=== PATIENT | female | born 1945 | race African-American/Black ===

== ENCOUNTER 2016-12-22 05:50 | Inpatient (IN) | payer MEDICARE, MEDICAID ==
[~2016-12-22] VITALS: Ht 157.5 cm; Wt 61.2 kg
[~2016-12-22 05:50] MED LIST: ASPI-1035 PO; CLOP75TA33 PO; ESOM40CA PO; FLUT1DIS5 IH; HYDR-523 PO; HYDR25TA PO; LEVO100T PO; LIOR10 PO; LOSA50TA20 PO; METO50TA5 PO; POTA-79 PO; fluticasone; prevastatin PO; theophylline PO
[2016-12-22] MEDS ORDERED: SODIUM CHLORIDE 0.9% 1,000 ML IV SCH ×2 (06:40→09:02)
[2016-12-22] MEDS ORDERED: GELATIN SPONGE,ABSORBABLE SZ 100 ONE (06:56)
[2016-12-22] MEDS ORDERED: THROMBIN (BOVINE) 5000 UNITS/VIAL TOP ONE (06:56)
[2016-12-22] MEDS ORDERED: PAPAVERINE HCL 30 MG/ML 2ML IV ONE (06:56)
[2016-12-22] MEDS ORDERED: HEPARIN SODIUM 1,000 UNIT/1ML VIAL IV ONE (06:57)
[2016-12-22] MEDS ORDERED: LIDOCAINE HCL 1% 20ML VIAL (Pyxis) INJ ONE (06:57)
[2016-12-22] MEDS ORDERED: BUPIVACAINE HCL/PF 0.5% (5MG/ML) 10ML ONE (06:57)
[2016-12-22] MEDS ORDERED: BACITRACIN ZINC 15GM TUBE TOP ONE (06:58)
[2016-12-22] MEDS ORDERED: BACITRACIN 50,000 UNITS/VIAL ONE (06:59)
[2016-12-22] MEDS ORDERED: NORMAL SALINE 0.9% 10 ML SYR ONE (07:01)
[2016-12-22] MEDS ORDERED: ONDANSETRON HCL 4MG/2ML VIAL IV PRN ×2 (07:30→09:15)
[2016-12-22] MEDS ORDERED: PRAV40TA58 PO (08:50)
[2016-12-22] MEDS: HYDROMORPHONE HCL/PF 2MG/ML CPJ IV PRN ×5 (10:06→10:56)
[2016-12-22 11:30] VITALS: BP 127/84
[2016-12-22] MEDS: MORPHINE SULFATE 4 MG/ML CPJ (NOT FOR IM USE) IV PRN ×2 (13:39→21:40)
[2016-12-22 16:00] VITALS: BP 135/80
[2016-12-22] MEDS: ACETAMINOPHEN 325MG TABLET PO PRN (18:01)
[2016-12-22 20:00] VITALS: BP 104/67
[2016-12-22 21:00] LABS: HEMATOCRIT 33.4 % (36.0-48.0); HEMOGLOBIN 11.1 g/dL (12.0-16.0); MEAN CORPUSCULAR HEMOGLOBIN 31.8 pg (28.0-32.0); MEAN CORPUSCULAR HGB CONC 33.3 g/dL (31.0-37.0); MEAN CORPUSCULAR VOLUME 95.6 fL (81.0-99.0); PLATELET 229 x1000/uL (130-400); RED CELL DISTRIBUTION WIDTH 13.8 % (11.6-14.6); WHITE BLOOD COUNT 15.4 x1000/uL (4.5-11.0)
[2016-12-22 21:01] LABS: CHLORIDE 105 mEq/L (98-107); INDEX HEMOLYSI 1 (1-3); INDEX ICTERIC 1 (1-4); INDEX LIPEMIC 1 (1-3)
[2016-12-22 21:10] LABS: ALANINE AMINOTRANSFERASE 19 IU/L (13-61); ALBUMIN 2.8 g/dL (3.4-5.0); ANION GAP 15; BILIRUBIN DIRECT 0.2 mg/dL (0.0-0.2); CALCIUM 8.9 mg/dL (8.5-10.1); CARBON DIOXIDE 21 mEq/L (21-32); UREA NITROGEN BLOOD 18 mg/dL (7-21); eGFR > 60 mL/min (>60)
[2016-12-22] MEDS: METOPROLOL TARTRATE 50MG TABLET PO SCH (21:27)
[2016-12-22] MEDS: ATORVASTATIN CALCIUM 10MG TABLET PO SCH (21:27)
[2016-12-22] MEDS ORDERED: VANCOMYCIN 1 G PREMIX 200 ML IV NR (23:00)
[2016-12-22] MEDS ORDERED: PIPERACILLIN/TAZOBACTAM 3.375GM/50ML PREMIX IV ONE (23:45)
[2016-12-22] MEDS ORDERED: VANCOMYCIN 500 MG in DEXT 5% WATER 100 ML IV SCH (23:45)
[2016-12-23] VITALS: BP 115/65
[2016-12-23] MEDS ORDERED: PIPERACILLIN/TAZ 3.375G PREMIX 50 ML IV SCH
[2016-12-23 06:42] LABS: HEMATOCRIT. 32.8 % (36.0-48.0); MEAN CORPUSCULAR HEMOGLOBIN 32.1 pg (28.0-32.0); MEAN CORPUSCULAR HGB CONC 33.6 g/dL (31.0-37.0); MEAN CORPUSCULAR VOLUME 95.6 fL (81.0-99.0); PLATELET 210 x1000/uL (130-400); RED BLOOD CELL COUNT 3.42 mill/uL (4.2-5.4); RED CELL DISTRIBUTION WIDTH 13.5 % (11.6-14.6); WHITE BLOOD COUNT 13.2 x1000/uL (4.5-11.0)
[2016-12-23 06:53] LABS: DIFFERENTIAL COMMENT 1
[2016-12-23 07:18] LABS: CHLORIDE 103 mEq/L (98-107); INDEX HEMOLYSI 1 (1-3); INDEX ICTERIC 1 (1-4); INDEX LIPEMIC 1 (1-3)
[2016-12-23 07:24] LABS: ANION GAP 13; CALCIUM 8.7 mg/dL (8.5-10.1); CARBON DIOXIDE 24 mEq/L (21-32); UREA NITROGEN BLOOD 14 mg/dL (7-21); eGFR > 60 mL/min (>60)
[2016-12-23] MEDS: LEVOTHYROXINE SODIUM 100MCG TABLET PO SCH (07:47)
[2016-12-23] MEDS: HYDROCODONE/ACETAMINOPHEN 5/325MG TABLET PO PRN ×2 (07:49→14:22)
[2016-12-23 08:00] VITALS: BP 106/75
[2016-12-23] MEDS ORDERED: PIPERACILLIN/TAZOBACTAM 3.375GM/50ML PREMIX IV SCH (08:15)
[2016-12-23] MEDS: LOSARTAN POTASSIUM 50 MG TABLET PO SCH (09:00)
[2016-12-23] MEDS: HYDROCHLOROTHIAZIDE 25MG TABLET PO SCH (09:00)
[2016-12-23] MEDS ORDERED: MEDICATION NOT ON FORMULARY EA (Pravastatin Sodium 40 MG) PO SCH (09:00)
[2016-12-23] MEDS: METOPROLOL TARTRATE 50MG TABLET PO SCH ×2 (09:00→21:00)
[2016-12-23] MEDS: CLOPIDOGREL 75MG TABLET PO SCH (09:32)
[2016-12-23] MEDS: ASPIRIN 81MG EC TABLET PO SCH (09:33)
[2016-12-23] MEDS: PIPERACILLIN/TAZ 3.375G PREMIX 50 ML IV SCH ×2 (10:40→17:45)
[2016-12-23] MEDS ORDERED: VANCOMYCIN 500 MG PREMIX 100 ML IV SCH (11:00)
[2016-12-23] MEDS ORDERED: VANCOMYCIN 1 G PREMIX 200 ML IV SCH (11:00)
[2016-12-23 12:00] VITALS: BP 116/64
[2016-12-23] MEDS ORDERED: POTASSIUM CHLORIDE 20MEQ TABLET SR PO NR (15:00)
[2016-12-23 16:00] VITALS: BP 107/50
[2016-12-23] MEDS: SODIUM CHL 0.45% + KCL 20MEQ/L 1,000 ML IV SCH (16:33)
[2016-12-23] MEDS: MORPHINE SULFATE 4 MG/ML CPJ (NOT FOR IM USE) IV PRN (16:34)
[2016-12-23] MEDS: VANCOMYCIN 750 MG PREMIX 150 ML IV SCH (18:55)
[2016-12-23 19:03] LABS: CLARITY URINE CLEAR (CLEAR); COLOR URINE YELLOW (YELLOW); GLUCOSE URINE NEGATIVE (NEGATIVE); KETONES URINE NEGATIVE (NEGATIVE); LEUKOCYTE ESTERASE URINE NEGATIVE (NEGATIVE); NITRITE URINE NEGATIVE (NEGATIVE); OCCULT BLOOD URINE NEGATIVE (NEGATIVE); PH URINE 5.5 (4.5-8.0); PROTEIN URINE NEGATIVE (NEGATIVE); SPECIFIC GRAVITY URINE 1.017 (1.005-1.030)
[2016-12-23 20:00] VITALS: BP 87/47
[2016-12-23] MEDS: ATORVASTATIN CALCIUM 10MG TABLET PO SCH (21:31)
[2016-12-23 22:29] LABS: PLATELET ESTIMATE NORMAL
[2016-12-24] VITALS: BP 127/64
[2016-12-24] MEDS: SODIUM CHL 0.45% + KCL 20MEQ/L 1,000 ML IV SCH ×3 (01:59→21:57)
[2016-12-24] MEDS: PIPERACILLIN/TAZ 3.375G PREMIX 50 ML IV SCH ×4 (02:04→17:29)
[2016-12-24] MEDS: MORPHINE SULFATE 4 MG/ML CPJ (NOT FOR IM USE) IV PRN ×2 (02:07→20:52)
[2016-12-24 04:00] VITALS: BP 127/86
[2016-12-24] MEDS: LEVOTHYROXINE SODIUM 100MCG TABLET PO SCH (06:40)
[2016-12-24 08:00] VITALS: BP 95/58
[2016-12-24] MEDS: CLOPIDOGREL 75MG TABLET PO SCH (08:37)
[2016-12-24] MEDS: ASPIRIN 81MG EC TABLET PO SCH (08:37)
[2016-12-24] MEDS: HYDROCHLOROTHIAZIDE 25MG TABLET PO SCH (08:39)
[2016-12-24] MEDS: LOSARTAN POTASSIUM 50 MG TABLET PO SCH (08:39)
[2016-12-24] MEDS: METOPROLOL TARTRATE 50MG TABLET PO SCH ×2 (08:40→20:52)
[2016-12-24] MEDS: VANCOMYCIN 750 MG PREMIX 150 ML IV SCH (11:09)
[2016-12-24 12:00] VITALS: BP 103/62
[2016-12-24] MEDS ORDERED: MAGNESIUM HYDROXIDE 400MG/5ML 30ML UDC PO SCH (13:15)
[2016-12-24] MEDS: MELOXICAM 7.5MG TABLET PO SCH (13:37)
[2016-12-24 16:00] VITALS: BP 113/73
[2016-12-24 20:00] VITALS: BP 113/67
[2016-12-24] MEDS: ATORVASTATIN CALCIUM 10MG TABLET PO SCH (20:52)
[2016-12-24] MEDS: ACETAMINOPHEN 325MG TABLET PO PRN (20:53)
[2016-12-24] MEDS ORDERED: ZOLPIDEM TARTRATE 5MG TABLET PO SCH (21:00)
[2016-12-25] VITALS (7 sets, daily range): BP systolic 85–117; BP diastolic 50–61
[2016-12-25] MEDS: PIPERACILLIN/TAZ 3.375G PREMIX 50 ML IV SCH ×4 (00:47→20:47)
[2016-12-25] MEDS: MORPHINE SULFATE 4 MG/ML CPJ (NOT FOR IM USE) IV PRN (05:25)
[2016-12-25 05:31] LABS: ANION GAP 15; CALCIUM 8.8 mg/dL (8.5-10.1); CARBON DIOXIDE 23 mEq/L (21-32); CHLORIDE 103 mEq/L (98-107); INDEX HEMOLYSI 1 (1-3); INDEX ICTERIC 1 (1-4); INDEX LIPEMIC 1 (1-3); UREA NITROGEN BLOOD 14 mg/dL (7-21); VANCOMYCIN TROUGH 8.9 ug/mL (5.0-10.0); eGFR > 60 mL/min (>60)
[2016-12-25] MEDS: LEVOTHYROXINE SODIUM 100MCG TABLET PO SCH (06:13)
[2016-12-25] MEDS: VANCOMYCIN 750 MG PREMIX 150 ML IV SCH (06:13)
[2016-12-25 06:53] LABS: BASOPHILS % 0.4 % (0.0-2.0); EOSINOPHILS % 0.5 % (0.0-5.0); HEMATOCRIT. 32.5 % (36.0-48.0); HEMOGLOBIN. 10.8 g/dL (12.0-16.0); LYMPHOCYTES % 11.7 % (20.0-50.0); MEAN CORPUSCULAR HEMOGLOBIN 32.4 pg (28.0-32.0); MEAN CORPUSCULAR HGB CONC 33.2 g/dL (31.0-37.0); MEAN CORPUSCULAR VOLUME 97.8 fL (81.0-99.0); MEAN PLATELET VOLUME 8.2 fl (7.4-10.4); MONOCYTES % 14.6 % (2.0-8.0); NEUTROPHILS % 72.8 % (40.0-76.0); PLATELET 213 x1000/uL (130-400); RED BLOOD CELL COUNT 3.32 mill/uL (4.2-5.4); RED CELL DISTRIBUTION WIDTH 13.4 % (11.6-14.6); WHITE BLOOD COUNT 13.4 x1000/uL (4.5-11.0)
[2016-12-25] MEDS: HYDROCHLOROTHIAZIDE 25MG TABLET PO SCH (09:00)
[2016-12-25] MEDS: LOSARTAN POTASSIUM 50 MG TABLET PO SCH (09:00)
[2016-12-25] MEDS: METOPROLOL TARTRATE 50MG TABLET PO SCH ×2 (09:00→20:15)
[2016-12-25] MEDS: ASPIRIN 81MG EC TABLET PO SCH (09:48)
[2016-12-25] MEDS: MELOXICAM 7.5MG TABLET PO SCH (09:48)
[2016-12-25] MEDS: CLOPIDOGREL 75MG TABLET PO SCH (09:48)
[2016-12-25] MEDS: HYDROCODONE/ACETAMINOPHEN 5/325MG TABLET PO PRN (09:51)
[2016-12-25] MEDS: SODIUM CHL 0.45% + KCL 20MEQ/L 1,000 ML IV SCH (17:53)
[2016-12-25] MEDS ORDERED: VANCOMYCIN 750 MG PREMIX 150 ML IV SCH (18:00)
[2016-12-25] MEDS: ATORVASTATIN CALCIUM 10MG TABLET PO SCH (20:46)
== END 2016-12-25 22:10 | disposition home health service (06) | DRG 253 ==
LOC: OR 05:50 → 6EST 05:51 → EDSTATUS 07:30
PROVIDERS: ADMIT Surgery Vascular Surgery; ATTEND Surgery Vascular Surgery
PROC: 041L0KL Bypass Left Femoral Artery to Popliteal Artery with Nonautologous Tissue Substitute, Open Approach (ICD-10-PCS; principal; 2016-12-22 07:30)
DX: E11.51 Type 2 diabetes mellitus with diabetic peripheral angiopathy without gangrene (principal); J98.11 Atelectasis; E44.1 Mild protein-calorie malnutrition; I74.9 Embolism and thrombosis of unspecified artery; D64.9 Anemia, unspecified; D72.829 Elevated white blood cell count, unspecified; E78.5 Hyperlipidemia, unspecified; E87.6 Hypokalemia; I12.9 Hypertensive chronic kidney disease with stage 1 through stage 4 chronic kidney disease, or unspecified chronic kidney disease; I25.10 Atherosclerotic heart disease of native coronary artery without angina pectoris; E11.65 Type 2 diabetes mellitus with hyperglycemia; J44.9 Chronic obstructive pulmonary disease, unspecified; K57.90 Diverticulosis of intestine, part unspecified, without perforation or abscess without bleeding; M16.12 Unilateral primary osteoarthritis, left hip; M48.02 Spinal stenosis, cervical region; N18.3 Chronic kidney disease, stage 3 (moderate); Z86.010 Personal history of colon polyps; Z86.718 Personal history of other venous thrombosis and embolism; Z79.82 Long term (current) use of aspirin; Z79.899 Other long term (current) drug therapy
CPT/HCPCS: 36415; 80048; 80051; 80076; 80202; 81003; 82962; 83036; 85025; 85027; 87040; 87086; 97162; 97166; A4216; C1884; C1893; J1170; J1644; J2270; J2440; J2543; J3370; J3480; J3490; J7030

== ENCOUNTER 2017-02-15 07:42 | Day surgery (SDC) | payer MEDICARE, MEDICAID ==
[~2017-02-15] VITALS: Ht 157.5 cm; Wt 60.8 kg
[~2017-02-15 07:42] MED LIST changes: +BACL-141 PO; -LIOR10 PO; +PRAV40TA58 PO; -prevastatin PO
[2017-02-15] MEDS ORDERED: MIDAZOLAM HCL 2 MG/2 ML VIAL ONE (11:33)
[2017-02-15] MEDS ORDERED: LIDOCAINE HCL 1% 20ML VIAL (Pyxis) INJ ONE (11:34)
[2017-02-15] MEDS ORDERED: IODIXANOL 320MG/ML 100 ML BOTTLE IV ONE (11:34)
[2017-02-15] MEDS ORDERED: FENTANYL CITRATE/PF 50MCG/ML 2ML VIAL ONE (11:34)
[2017-02-15] MEDS ORDERED: HYDROMORPHONE HCL/PF 2MG/ML (OR) ONE (11:47)
== END 2017-02-15 18:00 | disposition home or self-care (01) ==
LOC: CCL 07:42
PROVIDERS: ATTEND Specialist
DX: I70.212 Atherosclerosis of native arteries of extremities with intermittent claudication, left leg (principal)
CPT/HCPCS: 36246; 75710; C1725; C1760; C1769; C1893; J1170; J1644; J2250; J3010; J3490; Q9967

== ENCOUNTER → 2017-11-08 | Outpatient (CLI) | payer MEDICARE, MEDICAID ==
[~2017-11-08] MED LIST changes: -ASPI-1035 PO; +ASPI-1159 PO; +METO-539 PO; -METO50TA5 PO
== END | disposition home or self-care (01) ==
LOC: MRI 11:49
PROVIDERS: ATTEND Neurological Surgery
DX: M48.061 Spinal stenosis, lumbar region without neurogenic claudication (principal); M48.07 Spinal stenosis, lumbosacral region; Z98.1 Arthrodesis status
CPT/HCPCS: 72141; 72148

== ENCOUNTER → 2020-04-28 | Outpatient (CLI) | payer MEDICARE, MEDICAID ==
[~2020-04-28] MED LIST changes: -ASPI-1159 PO; +ASPI-1497 PO; -LOSA50TA20 PO; +LOSA50TA41 PO
== END | disposition home or self-care (01) ==
LOC: MRI 11:35
PROVIDERS: ATTEND Neurological Surgery
DX: M47.816 Spondylosis without myelopathy or radiculopathy, lumbar region (principal); M48.061 Spinal stenosis, lumbar region without neurogenic claudication; M43.17 Spondylolisthesis, lumbosacral region; M51.26 Other intervertebral disc displacement, lumbar region; M43.22 Fusion of spine, cervical region; M48.02 Spinal stenosis, cervical region; M25.78 Osteophyte, vertebrae
CPT/HCPCS: 72141; 72148

== ENCOUNTER → 2020-07-12 | Outpatient (CLI) | payer MEDICARE, MEDICAID ==
[~2020-07-12] MED LIST changes: +TRAM50TA3 PO
== END | disposition home or self-care (01) ==
LOC: LAB 09:11
PROVIDERS: ATTEND Neurological Surgery
DX: Z01.812 Encounter for preprocedural laboratory examination (principal); Z20.828 Contact with and (suspected) exposure to other viral communicable diseases
CPT/HCPCS: 87635; C9803

== ENCOUNTER 2020-07-18 15:05 | Inpatient (IN) | payer MEDICARE, MEDICAID ==
[~2020-07-18] VITALS: Ht 157.5 cm; Wt 74.4 kg
[2020-07-18] MEDS ORDERED: IPRATROPIUM/ALBUTEROL 0.5-3(2.5)MG/3ML NEB HHN PRN (16:00)
[2020-07-18] MEDS ORDERED: MORPHINE SULFATE 2 MG/ML CPJ (NOT FOR IM USE) IV PRN (16:00)
[2020-07-18] MEDS ORDERED: HYDROMORPHONE HCL/PF 2MG/ML CPJ IV PRN (16:00)
[2020-07-18 16:06] VITALS: BP 155/78
[2020-07-18] MEDS ORDERED: LACTULOSE 20G/30ML UDC PO PRN (16:30)
[2020-07-18] MEDS: DEXT 5%/0.45% NACL 1000ML 1,000 ML IV SCH (16:41)
[2020-07-18] MEDS: OXYCODONE HCL/ACETAMINOPHEN 5/325MG TABLET PO PRN ×2 (16:42→21:27)
[2020-07-18] MEDS: DOCUSATE SODIUM 100MG CAPSULE PO SCH (16:42)
[2020-07-18 17:27] VITALS: BP 155/78
[2020-07-18] MEDS: ACETAMINOPHEN 325MG TABLET PO PRN (19:50)
[2020-07-18 20:00] VITALS: BP 109/70
[2020-07-18] MEDS ORDERED: PNEUMOCOCCAL 23-VAL P-SAC VAC 0.5 ML IM ONE (21:00)
[2020-07-18] MEDS: BISACODYL 5MG TABLET PO PRN (21:25)
[2020-07-18] MEDS: ATORVASTATIN CALCIUM 10MG TABLET PO SCH (21:26)
[2020-07-18] MEDS: POLYETHYLENE GLYCOL 3350 (17GM) 1 DOSE PACK PO SCH (21:30)
[2020-07-18] MEDS: DILTIAZEM HCL 30MG TABLET PO SCH (22:30)
[2020-07-18] MEDS: IPRATROPIUM/ALBUTEROL 0.5-3(2.5)MG/3ML NEB HHN SCH (22:33)
[2020-07-19] MEDS: IPRATROPIUM/ALBUTEROL 0.5-3(2.5)MG/3ML NEB HHN SCH ×4 (04:14→21:28)
[2020-07-19] MEDS: DILTIAZEM HCL 30MG TABLET PO SCH ×3 (06:14→23:28)
[2020-07-19] MEDS: LEVOTHYROXINE SODIUM 100MCG TABLET PO SCH (06:14)
[2020-07-19] MEDS: OXYCODONE HCL/ACETAMINOPHEN 5/325MG TABLET PO PRN ×3 (06:43→20:30)
[2020-07-19 06:49] LABS: HEMATOCRIT. 25.1 % (36.0-48.0); HEMOGLOBIN. 8.7 g/dL (12.0-16.0); MEAN CORPUSCULAR HEMOGLOBIN 35.9 pg (28.0-32.0); MEAN CORPUSCULAR VOLUME 103.7 fL (81.0-99.0); MEAN PLATELET VOLUME 7.4 fl (7.4-10.4); PLATELET 283 x1000/uL (130-400); RED BLOOD CELL COUNT 2.42 mill/uL (4.2-5.4)
[2020-07-19 07:17] LABS: CHLORIDE 102 mEq/L (98-107)
[2020-07-19 07:53] VITALS: BP 123/70
[2020-07-19] MEDS: DOCUSATE SODIUM 100MG CAPSULE PO SCH ×2 (08:06→16:27)
[2020-07-19] MEDS: BISACODYL 5MG TABLET PO PRN (08:07)
[2020-07-19] MEDS: NA PHOS,M-B/NA PHOS,DI-BA ENEMA 118ML PR PRN (09:55)
[2020-07-19] MEDS: CEFTRIAXONE 1,000 MG in DEXTROSE 5% WATER 50 ML IV SCH (11:37)
[2020-07-19] MEDS: ONDANSETRON HCL 4MG TABLET PO PRN (11:41)
[2020-07-19] MEDS: ACETAMINOPHEN 325MG TABLET PO PRN (13:09)
[2020-07-19 13:17] VITALS: BP_SYST 149
[2020-07-19] MEDS: DEXT 5%/0.45% NACL 1000ML 1,000 ML IV SCH (17:52)
[2020-07-19 20:00] VITALS: BP 107/49
[2020-07-19] MEDS ORDERED: VANCOMYCIN 1 G PREMIX 200 ML IV SCH (20:00)
[2020-07-19] MEDS: POLYETHYLENE GLYCOL 3350 (17GM) 1 DOSE PACK PO SCH (20:28)
[2020-07-19] MEDS: ATORVASTATIN CALCIUM 10MG TABLET PO SCH (20:28)
[2020-07-20] MEDS: IPRATROPIUM/ALBUTEROL 0.5-3(2.5)MG/3ML NEB HHN SCH ×5 (01:30→20:32)
[2020-07-20] MEDS: DILTIAZEM HCL 30MG TABLET PO SCH ×2 (05:51→21:05)
[2020-07-20 06:14] LABS: HEMATOCRIT. 26.9 % (36.0-48.0); HEMOGLOBIN. 8.8 g/dL (12.0-16.0); MEAN CORPUSCULAR HEMOGLOBIN 33.9 pg (28.0-32.0); MEAN CORPUSCULAR VOLUME 103.4 fL (81.0-99.0); MEAN PLATELET VOLUME 7.4 fl (7.4-10.4); PLATELET 309 x1000/uL (130-400); RED CELL DISTRIBUTION WIDTH 12.3 % (11.6-14.6)
[2020-07-20 06:30] LABS: CHLORIDE 99 mEq/L (98-107)
[2020-07-20 06:38] LABS: PHOSPHORUS 2.4 mg/dL (2.5-4.9); TOTAL IRON BINDING CAPACITY 217 ug/dL (250-450)
[2020-07-20 06:39] LABS: FOLIC ACID (FOLATE) SERUM 9.1 ng/mL (>5.38)
[2020-07-20] MEDS: LEVOTHYROXINE SODIUM 100MCG TABLET PO SCH (06:42)
[2020-07-20] MEDS: OXYCODONE HCL/ACETAMINOPHEN 5/325MG TABLET PO PRN ×3 (06:43→21:06)
[2020-07-20] MEDS: DEXT 5%/0.45% NACL 1000ML 1,000 ML IV SCH ×2 (06:51→16:27)
[2020-07-20 07:06] LABS: PLATELET ESTIMATE NORMAL
[2020-07-20 07:55] VITALS: BP 121/60
[2020-07-20] MEDS ORDERED: VANCOMYCIN 750 MG PREMIX 150 ML IV SCH (08:00)
[2020-07-20] MEDS: DOCUSATE SODIUM 100MG CAPSULE PO SCH ×2 (08:12→16:19)
[2020-07-20] MEDS ORDERED: SODIUM PHOS,M-BASIC-D-BASIC 20 MM in DEXT 5% WATER 243.3333 ML IV NR (09:00)
[2020-07-20 11:41] VITALS: BP 96/52
[2020-07-20] MEDS ORDERED: DIATR MEGLU/DIATRIZOATE SOLN 30ML PO SCH (12:15)
[2020-07-20 12:40] VITALS: BP 94/63
[2020-07-20] MEDS: CEFTRIAXONE 1,000 MG in DEXTROSE 5% WATER 50 ML IV SCH (12:41)
[2020-07-20] MEDS: VANCOMYCIN 1 G PREMIX 200 ML IV SCH (13:30)
[2020-07-20] MEDS ORDERED: DIATR MEGLU/DIATRIZOATE SOLN 30ML PO NR ×2 (14:15→16:00)
[2020-07-20 14:28] LABS: PLATELET ESTIMATE NORMAL
[2020-07-20 15:43] VITALS: BP 108/56
[2020-07-20] MEDS ORDERED: IOHEXOL-300 100 ML BOTTLE ONE (18:37)
[2020-07-20 20:00] VITALS: BP 131/66
[2020-07-20] MEDS: POLYETHYLENE GLYCOL 3350 (17GM) 1 DOSE PACK PO SCH (21:00)
[2020-07-20] MEDS: ATORVASTATIN CALCIUM 10MG TABLET PO SCH (21:04)
[2020-07-21] MEDS: DEXT 5%/0.45% NACL 1000ML 1,000 ML IV SCH ×3 (00:05→17:11)
[2020-07-21] MEDS: IPRATROPIUM/ALBUTEROL 0.5-3(2.5)MG/3ML NEB HHN SCH ×4 (01:40→21:32)
[2020-07-21] MEDS: VANCOMYCIN 1 G PREMIX 200 ML IV SCH (05:51)
[2020-07-21] MEDS: LEVOTHYROXINE SODIUM 100MCG TABLET PO SCH (06:04)
[2020-07-21] MEDS: OXYCODONE HCL/ACETAMINOPHEN 5/325MG TABLET PO PRN ×4 (06:04→22:46)
[2020-07-21 06:37] LABS: HEMATOCRIT. 22.8 % (36.0-48.0); HEMOGLOBIN. 7.7 g/dL (12.0-16.0); MEAN CORPUSCULAR HEMOGLOBIN 34.1 pg (28.0-32.0); MEAN CORPUSCULAR VOLUME 101.3 fL (81.0-99.0); MEAN PLATELET VOLUME 7.4 fl (7.4-10.4); PLATELET 344 x1000/uL (130-400); RED BLOOD CELL COUNT 2.25 mill/uL (4.2-5.4); RED CELL DISTRIBUTION WIDTH 12.3 % (11.6-14.6)
[2020-07-21 06:56] LABS: CHLORIDE 100 mEq/L (98-107)
[2020-07-21 07:05] LABS: CREATINE KINASE 149 IU/L (26-192)
[2020-07-21] MEDS: ONDANSETRON HCL 4MG TABLET PO PRN (07:13)
[2020-07-21 08:28] VITALS: BP 102/61
[2020-07-21] MEDS: DOCUSATE SODIUM 100MG CAPSULE PO SCH ×3 (08:54→17:11)
[2020-07-21] MEDS: POTASSIUM CHLORIDE 20MEQ TABLET SR PO SCH ×2 (08:55→17:11)
[2020-07-21] MEDS: DILTIAZEM HCL 30MG TABLET PO SCH ×2 (08:55→22:46)
[2020-07-21 10:31] LABS: PLATELET ESTIMATE NORMAL
[2020-07-21] MEDS: CEFTRIAXONE 1,000 MG in DEXTROSE 5% WATER 50 ML IV SCH (12:33)
[2020-07-21] MEDS ORDERED: LOPERAMIDE 2MG/15ML UDC PO NR (17:00)
[2020-07-21] MEDS: METRONIDAZOLE 500 MG PREMIX 100 ML IV SCH ×2 (17:11→23:52)
[2020-07-21 20:00] VITALS: BP 126/80
[2020-07-21] MEDS: POLYETHYLENE GLYCOL 3350 (17GM) 1 DOSE PACK PO SCH (21:00)
[2020-07-21] MEDS: ATORVASTATIN CALCIUM 10MG TABLET PO SCH (22:43)
[2020-07-21] MEDS: VANCOMYCIN HCL 1000 MG/20 ML ORAL PO SCH (23:53)
[2020-07-22] MEDS: DEXT 5%/0.45% NACL 1000ML 1,000 ML IV SCH ×3 (00:12→16:05)
[2020-07-22] MEDS: IPRATROPIUM/ALBUTEROL 0.5-3(2.5)MG/3ML NEB HHN SCH ×3 (02:07→19:43)
[2020-07-22] MEDS: LEVOTHYROXINE SODIUM 100MCG TABLET PO SCH (06:37)
[2020-07-22] MEDS: OXYCODONE HCL/ACETAMINOPHEN 5/325MG TABLET PO PRN ×4 (06:39→23:25)
[2020-07-22 07:24] LABS: CHLORIDE 105 mEq/L (98-107)
[2020-07-22 07:32] LABS: PHOSPHORUS 2.1 mg/dL (2.5-4.9)
[2020-07-22 08:00] LABS: BASOPHILS % 0.7 % (0.0-2.0); EOSINOPHILS % 0.4 % (0.0-5.0); HEMATOCRIT. 23.2 % (36.0-48.0); HEMOGLOBIN. 7.7 g/dL (12.0-16.0); LYMPHOCYTES % 7.8 % (20.0-50.0); MEAN CORPUSCULAR HEMOGLOBIN 34.1 pg (28.0-32.0); MEAN CORPUSCULAR VOLUME 102.7 fL (81.0-99.0); MONOCYTES % 6.6 % (2.0-8.0); NEUTROPHILS % 84.5 % (40.0-76.0); RED BLOOD CELL COUNT 2.26 mill/uL (4.2-5.4); RED CELL DISTRIBUTION WIDTH 12.8 % (11.6-14.6)
[2020-07-22 08:30] VITALS: BP 115/64
[2020-07-22] MEDS: DILTIAZEM HCL 30MG TABLET PO SCH ×2 (08:42→21:34)
[2020-07-22] MEDS: POTASSIUM CHLORIDE 20MEQ TABLET SR PO SCH (08:42)
[2020-07-22] MEDS: METRONIDAZOLE 500 MG PREMIX 100 ML IV SCH ×2 (08:43→16:15)
[2020-07-22] MEDS: VANCOMYCIN HCL 1000 MG/20 ML ORAL PO SCH ×4 (08:45→21:35)
[2020-07-22] MEDS: DOCUSATE SODIUM 100MG CAPSULE PO SCH ×2 (08:56→16:43)
[2020-07-22] MEDS ORDERED: SODIUM PHOS,M-BASIC-D-BASIC 20 MM in DEXT 5% WATER 243.3333 ML IV ONE (12:30)
[2020-07-22] MEDS: FERROUS SULFATE 325MG TABLET PO SCH ×2 (12:42→16:45)
[2020-07-22] MEDS ORDERED: MAGNESIUM 2 G PREMIX 50 ML IV ONE (16:30)
[2020-07-22 17:52] VITALS: BP 143/74
[2020-07-22 20:00] VITALS: BP 131/71
[2020-07-22] MEDS: POLYETHYLENE GLYCOL 3350 (17GM) 1 DOSE PACK PO SCH (20:45)
[2020-07-22] MEDS: ATORVASTATIN CALCIUM 10MG TABLET PO SCH (21:34)
[2020-07-23] MEDS: DEXT 5%/0.45% NACL 1000ML 1,000 ML IV SCH ×3 (00:05→16:05)
[2020-07-23] MEDS: METRONIDAZOLE 500 MG PREMIX 100 ML IV SCH ×4 (01:02→23:12)
[2020-07-23] MEDS: IPRATROPIUM/ALBUTEROL 0.5-3(2.5)MG/3ML NEB HHN SCH ×4 (02:14→21:37)
[2020-07-23] MEDS: LEVOTHYROXINE SODIUM 100MCG TABLET PO SCH (06:54)
[2020-07-23] MEDS: OXYCODONE HCL/ACETAMINOPHEN 5/325MG TABLET PO PRN ×2 (06:55→13:03)
[2020-07-23 07:05] LABS: HEMATOCRIT. 23.8 % (36.0-48.0); HEMOGLOBIN. 8.1 g/dL (12.0-16.0); MEAN CORPUSCULAR HEMOGLOBIN 34.5 pg (28.0-32.0); MEAN CORPUSCULAR VOLUME 101.9 fL (81.0-99.0); MEAN PLATELET VOLUME 7.2 fl (7.4-10.4); PLATELET 519 x1000/uL (130-400); RED BLOOD CELL COUNT 2.33 mill/uL (4.2-5.4); RED CELL DISTRIBUTION WIDTH 12.4 % (11.6-14.6)
[2020-07-23 07:24] LABS: CHLORIDE 104 mEq/L (98-107)
[2020-07-23 07:45] LABS: PHOSPHORUS 2.6 mg/dL (2.5-4.9)
[2020-07-23 08:00] VITALS: BP 153/78
[2020-07-23] MEDS: FERROUS SULFATE 325MG TABLET PO SCH ×3 (09:27→17:19)
[2020-07-23] MEDS: DOCUSATE SODIUM 100MG CAPSULE PO SCH ×2 (09:28→17:17)
[2020-07-23] MEDS: DILTIAZEM HCL 30MG TABLET PO SCH ×2 (09:28→21:14)
[2020-07-23] MEDS: VANCOMYCIN HCL 1000 MG/20 ML ORAL PO SCH ×4 (09:29→21:16)
[2020-07-23 10:58] LABS: NUCLEATED RED BLOOD CELLS 1 /100 WBC; PLATELET ESTIMATE INCREASED
[2020-07-23] MEDS: ONDANSETRON HCL 4MG TABLET PO PRN (17:25)
[2020-07-23 20:00] VITALS: BP 133/64
[2020-07-23] MEDS: POLYETHYLENE GLYCOL 3350 (17GM) 1 DOSE PACK PO SCH (21:13)
[2020-07-23] MEDS: ATORVASTATIN CALCIUM 10MG TABLET PO SCH (21:13)
[2020-07-23] MEDS: ACETAMINOPHEN 325MG TABLET PO PRN (21:53)
[2020-07-23 22:47] VITALS: BP 133/64
[2020-07-24] MEDS: DEXT 5%/0.45% NACL 1000ML 1,000 ML IV SCH ×3 (02:37→21:36)
[2020-07-24] MEDS: IPRATROPIUM/ALBUTEROL 0.5-3(2.5)MG/3ML NEB HHN SCH ×4 (02:43→21:16)
[2020-07-24] MEDS: LEVOTHYROXINE SODIUM 100MCG TABLET PO SCH (06:16)
[2020-07-24 06:42] LABS: HEMATOCRIT. 23.8 % (36.0-48.0); HEMOGLOBIN. 7.9 g/dL (12.0-16.0); MEAN CORPUSCULAR HEMOGLOBIN 33.8 pg (28.0-32.0); MEAN CORPUSCULAR VOLUME 101.7 fL (81.0-99.0); MEAN PLATELET VOLUME 6.9 fl (7.4-10.4); PLATELET 574 x1000/uL (130-400); RED BLOOD CELL COUNT 2.34 mill/uL (4.2-5.4); RED CELL DISTRIBUTION WIDTH 12.4 % (11.6-14.6)
[2020-07-24 07:21] LABS: CHLORIDE 103 mEq/L (98-107)
[2020-07-24 07:38] LABS: PHOSPHORUS 2.1 mg/dL (2.5-4.9)
[2020-07-24 08:00] VITALS: BP 125/74
[2020-07-24] MEDS: ONDANSETRON HCL 4MG TABLET PO PRN (08:09)
[2020-07-24] MEDS: FERROUS SULFATE 325MG TABLET PO SCH ×3 (08:38→17:51)
[2020-07-24] MEDS: DOCUSATE SODIUM 100MG CAPSULE PO SCH ×2 (08:39→17:51)
[2020-07-24] MEDS: DILTIAZEM HCL 30MG TABLET PO SCH ×2 (08:39→21:35)
[2020-07-24] MEDS: METRONIDAZOLE 500 MG PREMIX 100 ML IV SCH ×2 (08:41→16:01)
[2020-07-24] MEDS: OXYCODONE HCL/ACETAMINOPHEN 5/325MG TABLET PO PRN (08:45)
[2020-07-24] MEDS: VANCOMYCIN HCL 1000 MG/20 ML ORAL PO SCH ×4 (08:46→21:53)
[2020-07-24] MEDS ORDERED: POTASSIUM-SODIUM PHOSPHATE POWDER PACKET PO NR (10:00)
[2020-07-24] MEDS ORDERED: POTASSIUM CHLORIDE 20MEQ TABLET SR PO NR (10:00)
[2020-07-24 14:03] LABS: PLATELET ESTIMATE INCREASED
[2020-07-24] MEDS: MORPHINE SULFATE 2 MG/ML CPJ (NOT FOR IM USE) IV PRN (16:02)
[2020-07-24] MEDS: ACETAMINOPHEN 325MG TABLET PO PRN (16:24)
[2020-07-24 20:00] VITALS: BP 124/79
[2020-07-24] MEDS ORDERED: NA PHOS,M-B/NA PHOS,DI-BA ENEMA 118ML PR NR (20:00)
[2020-07-24] MEDS: ATORVASTATIN CALCIUM 10MG TABLET PO SCH (21:34)
[2020-07-24] MEDS: POLYETHYLENE GLYCOL 3350 (17GM) 1 DOSE PACK PO SCH (21:34)
[2020-07-25] MEDS: OXYCODONE HCL/ACETAMINOPHEN 5/325MG TABLET PO PRN ×2 (00:53→17:00)
[2020-07-25] MEDS: METRONIDAZOLE 500 MG PREMIX 100 ML IV SCH ×2 (00:55→08:30)
[2020-07-25] MEDS: IPRATROPIUM/ALBUTEROL 0.5-3(2.5)MG/3ML NEB HHN SCH ×4 (01:15→21:05)
[2020-07-25 04:09] LABS: 25-HYDROXY VITAMIN D3 22 ng/mL (.)
[2020-07-25] MEDS: LEVOTHYROXINE SODIUM 100MCG TABLET PO SCH (06:25)
[2020-07-25 07:10] LABS: HEMATOCRIT. 23.1 % (36.0-48.0); HEMOGLOBIN. 7.8 g/dL (12.0-16.0); MEAN CORPUSCULAR HEMOGLOBIN 34.2 pg (28.0-32.0); MEAN CORPUSCULAR VOLUME 101.4 fL (81.0-99.0); MEAN PLATELET VOLUME 6.8 fl (7.4-10.4); PLATELET 604 x1000/uL (130-400); RED BLOOD CELL COUNT 2.27 mill/uL (4.2-5.4); RED CELL DISTRIBUTION WIDTH 12.8 % (11.6-14.6)
[2020-07-25 08:00] VITALS: BP 134/68
[2020-07-25 08:16] LABS: CHLORIDE 104 mEq/L (98-107)
[2020-07-25] MEDS: FERROUS SULFATE 325MG TABLET PO SCH ×3 (08:29→16:56)
[2020-07-25 08:30] LABS: PHOSPHORUS 2.7 mg/dL (2.5-4.9)
[2020-07-25] MEDS: VANCOMYCIN HCL 1000 MG/20 ML ORAL PO SCH ×4 (08:30→21:54)
[2020-07-25] MEDS: DILTIAZEM HCL 30MG TABLET PO SCH ×2 (08:30→21:55)
[2020-07-25] MEDS: DOCUSATE SODIUM 100MG CAPSULE PO SCH ×2 (08:31→17:00)
[2020-07-25] MEDS: MORPHINE SULFATE 2 MG/ML CPJ (NOT FOR IM USE) IV PRN (08:32)
[2020-07-25] MEDS: DEXT 5%/0.45% NACL 1000ML 1,000 ML IV SCH ×2 (10:24→23:30)
[2020-07-25] MEDS: MAGNESIUM OXIDE 400MG TABLET PO SCH ×2 (12:32→21:54)
[2020-07-25] MEDS: LACTOBACILLUS GG CAPSULE PO SCH (12:32)
[2020-07-25] MEDS: ERGOCALCIFEROL 50000UNITS CAPSULE PO SCH (12:32)
[2020-07-25 14:44] LABS: PLATELET ESTIMATE INCREASED
[2020-07-25] MEDS: NA PHOS,M-B/NA PHOS,DI-BA ENEMA 118ML PR PRN (16:56)
[2020-07-25 20:00] VITALS: BP 143/66
[2020-07-25] MEDS: POLYETHYLENE GLYCOL 3350 (17GM) 1 DOSE PACK PO SCH (21:00)
[2020-07-25] MEDS: ATORVASTATIN CALCIUM 10MG TABLET PO SCH (21:54)
[2020-07-26] MEDS: IPRATROPIUM/ALBUTEROL 0.5-3(2.5)MG/3ML NEB HHN SCH ×4 (01:50→22:10)
[2020-07-26] MEDS: OXYCODONE HCL/ACETAMINOPHEN 5/325MG TABLET PO PRN ×4 (02:45→21:23)
[2020-07-26 05:45] LABS: HEMATOCRIT. 24.9 % (36.0-48.0); HEMOGLOBIN. 8.3 g/dL (12.0-16.0); MEAN CORPUSCULAR HEMOGLOBIN 34.1 pg (28.0-32.0); MEAN CORPUSCULAR VOLUME 102.3 fL (81.0-99.0); MEAN PLATELET VOLUME 6.6 fl (7.4-10.4); PLATELET 692 x1000/uL (130-400); RED BLOOD CELL COUNT 2.43 mill/uL (4.2-5.4); RED CELL DISTRIBUTION WIDTH 12.9 % (11.6-14.6)
[2020-07-26 06:10] LABS: CHLORIDE 102 mEq/L (98-107)
[2020-07-26] MEDS: LEVOTHYROXINE SODIUM 100MCG TABLET PO SCH (06:31)
[2020-07-26 06:32] LABS: PHOSPHORUS 3.3 mg/dL (2.5-4.9)
[2020-07-26 08:19] VITALS: BP 145/97
[2020-07-26] MEDS: MAGNESIUM OXIDE 400MG TABLET PO SCH ×2 (08:46→21:23)
[2020-07-26] MEDS: VANCOMYCIN HCL 1000 MG/20 ML ORAL PO SCH ×4 (08:46→21:23)
[2020-07-26] MEDS: DILTIAZEM HCL 30MG TABLET PO SCH (08:47)
[2020-07-26] MEDS: DOCUSATE SODIUM 100MG CAPSULE PO SCH ×2 (08:47→16:40)
[2020-07-26] MEDS: LACTOBACILLUS GG CAPSULE PO SCH (08:47)
[2020-07-26] MEDS: FERROUS SULFATE 325MG TABLET PO SCH ×3 (08:47→16:40)
[2020-07-26] MEDS ORDERED: MORPHINE SULFATE 2 MG/ML CPJ (NOT FOR IM USE) IV PRN (11:49)
[2020-07-26 14:05] LABS: NUCLEATED RED BLOOD CELLS 3 /100 WBC; PLATELET ESTIMATE INCREASED
[2020-07-26 15:12] VITALS: BP 142/77
[2020-07-26] MEDS: DILTIAZEM HCL 60MG TABLET PO SCH ×2 (15:14→21:22)
[2020-07-26 20:00] VITALS: BP 126/74
[2020-07-26] MEDS: POLYETHYLENE GLYCOL 3350 (17GM) 1 DOSE PACK PO SCH (21:00)
[2020-07-26] MEDS: ATORVASTATIN CALCIUM 10MG TABLET PO SCH (21:22)
[2020-07-27] MEDS: IPRATROPIUM/ALBUTEROL 0.5-3(2.5)MG/3ML NEB HHN SCH ×4 (01:21→21:15)
[2020-07-27] MEDS: LEVOTHYROXINE SODIUM 100MCG TABLET PO SCH (06:08)
[2020-07-27] MEDS: DILTIAZEM HCL 60MG TABLET PO SCH ×3 (06:08→22:40)
[2020-07-27] MEDS: OXYCODONE HCL/ACETAMINOPHEN 5/325MG TABLET PO PRN ×3 (07:16→22:45)
[2020-07-27 08:26] VITALS: BP 111/66
[2020-07-27] MEDS: LACTOBACILLUS GG CAPSULE PO SCH (09:08)
[2020-07-27] MEDS: FERROUS SULFATE 325MG TABLET PO SCH ×3 (09:08→17:15)
[2020-07-27] MEDS: DOCUSATE SODIUM 100MG CAPSULE PO SCH ×2 (09:08→17:15)
[2020-07-27] MEDS: VANCOMYCIN HCL 1000 MG/20 ML ORAL PO SCH ×4 (09:10→21:32)
[2020-07-27 20:00] VITALS: BP 132/68
[2020-07-27] MEDS: POLYETHYLENE GLYCOL 3350 (17GM) 1 DOSE PACK PO SCH (21:30)
[2020-07-27] MEDS: ATORVASTATIN CALCIUM 10MG TABLET PO SCH (21:31)
[2020-07-28] MEDS: IPRATROPIUM/ALBUTEROL 0.5-3(2.5)MG/3ML NEB HHN SCH ×4 (02:20→20:11)
[2020-07-28 06:53] LABS: CHLORIDE 104 mEq/L (98-107)
[2020-07-28] MEDS: LEVOTHYROXINE SODIUM 100MCG TABLET PO SCH (06:55)
[2020-07-28 06:56] LABS: EOSINOPHILS % 0.4 % (0.0-5.0); HEMOGLOBIN. 8.8 g/dL (12.0-16.0); LYMPHOCYTES % 14.6 % (20.0-50.0); MEAN CORPUSCULAR HEMOGLOBIN 33.7 pg (28.0-32.0); MEAN CORPUSCULAR VOLUME 103.9 fL (81.0-99.0); MEAN PLATELET VOLUME 6.7 fl (7.4-10.4); MONOCYTES % 8.5 % (2.0-8.0); NEUTROPHILS % 75.5 % (40.0-76.0); PLATELET 700 x1000/uL (130-400); RED CELL DISTRIBUTION WIDTH 13.3 % (11.6-14.6)
[2020-07-28] MEDS: DILTIAZEM HCL 60MG TABLET PO SCH ×3 (06:56→21:04)
[2020-07-28 08:00] VITALS: BP 124/63
[2020-07-28] MEDS: LACTOBACILLUS GG CAPSULE PO SCH (08:12)
[2020-07-28] MEDS: OXYCODONE HCL/ACETAMINOPHEN 5/325MG TABLET PO PRN ×3 (08:13→18:02)
[2020-07-28] MEDS: FERROUS SULFATE 325MG TABLET PO SCH ×3 (08:13→17:46)
[2020-07-28] MEDS: VANCOMYCIN HCL 1000 MG/20 ML ORAL PO SCH ×4 (08:14→21:06)
[2020-07-28] MEDS: DOCUSATE SODIUM 100MG CAPSULE PO SCH (08:18)
[2020-07-28] MEDS: DOCUSATE SODIUM 250MG CAPSULE PO SCH (17:00)
[2020-07-28 20:00] VITALS: BP 133/61
[2020-07-28] MEDS: POLYETHYLENE GLYCOL 3350 (17GM) 1 DOSE PACK PO SCH (21:00)
[2020-07-28] MEDS: ATORVASTATIN CALCIUM 10MG TABLET PO SCH (21:04)
[2020-07-29] MEDS: IPRATROPIUM/ALBUTEROL 0.5-3(2.5)MG/3ML NEB HHN SCH ×4 (01:21→20:33)
[2020-07-29] MEDS: OXYCODONE HCL/ACETAMINOPHEN 5/325MG TABLET PO PRN ×4 (02:05→18:29)
[2020-07-29] MEDS: LEVOTHYROXINE SODIUM 100MCG TABLET PO SCH (06:00)
[2020-07-29] MEDS: DILTIAZEM HCL 60MG TABLET PO SCH ×3 (06:00→21:52)
[2020-07-29 08:00] VITALS: BP 110/60
[2020-07-29] MEDS: LACTOBACILLUS GG CAPSULE PO SCH (09:24)
[2020-07-29] MEDS: DOCUSATE SODIUM 250MG CAPSULE PO SCH ×2 (09:24→17:44)
[2020-07-29] MEDS: FERROUS SULFATE 325MG TABLET PO SCH ×3 (09:24→17:44)
[2020-07-29] MEDS: VANCOMYCIN HCL 1000 MG/20 ML ORAL PO SCH ×4 (09:25→21:53)
[2020-07-29] MEDS: LACTULOSE 20G/30ML UDC PO SCH ×2 (17:00→17:44)
[2020-07-29 20:00] VITALS: BP 117/72
[2020-07-29] MEDS: POLYETHYLENE GLYCOL 3350 (17GM) 1 DOSE PACK PO SCH (21:00)
[2020-07-29] MEDS: ATORVASTATIN CALCIUM 10MG TABLET PO SCH (21:51)
[2020-07-30] MEDS: IPRATROPIUM/ALBUTEROL 0.5-3(2.5)MG/3ML NEB HHN SCH ×4 (01:47→20:40)
[2020-07-30] MEDS: OXYCODONE HCL/ACETAMINOPHEN 5/325MG TABLET PO PRN ×4 (02:25→18:59)
[2020-07-30] MEDS: DILTIAZEM HCL 60MG TABLET PO SCH ×3 (06:05→21:00)
[2020-07-30] MEDS: LEVOTHYROXINE SODIUM 100MCG TABLET PO SCH (06:05)
[2020-07-30 08:00] VITALS: BP 146/80
[2020-07-30] MEDS: LACTOBACILLUS GG CAPSULE PO SCH (08:50)
[2020-07-30] MEDS: FERROUS SULFATE 325MG TABLET PO SCH ×3 (08:50→17:33)
[2020-07-30] MEDS: DOCUSATE SODIUM 250MG CAPSULE PO SCH ×2 (08:50→17:28)
[2020-07-30] MEDS: VANCOMYCIN HCL 1000 MG/20 ML ORAL PO SCH ×4 (08:52→21:01)
[2020-07-30 09:02] LABS: BASOPHILS % 0.2 % (0.0-2.0); EOSINOPHILS % 0.5 % (0.0-5.0); HEMATOCRIT. 29.2 % (36.0-48.0); HEMOGLOBIN. 9.5 g/dL (12.0-16.0); LYMPHOCYTES % 19.1 % (20.0-50.0); MEAN CORPUSCULAR HEMOGLOBIN 34.1 pg (28.0-32.0); MEAN CORPUSCULAR VOLUME 104.3 fL (81.0-99.0); MEAN PLATELET VOLUME 6.1 fl (7.4-10.4); MONOCYTES % 5.6 % (2.0-8.0); NEUTROPHILS % 74.6 % (40.0-76.0); PLATELET 710 x1000/uL (130-400); RED CELL DISTRIBUTION WIDTH 13.7 % (11.6-14.6)
[2020-07-30 09:18] LABS: CHLORIDE 104 mEq/L (98-107)
[2020-07-30 09:27] LABS: PHOSPHORUS 3.3 mg/dL (2.5-4.9)
[2020-07-30 12:33] LABS: CLARITY URINE CLEAR (CLEAR); COLOR URINE YELLOW (YELLOW); KETONES URINE NEGATIVE (NEGATIVE); LEUKOCYTE ESTERASE URINE NEGATIVE (NEGATIVE); NITRITE URINE NEGATIVE (NEGATIVE); OCCULT BLOOD URINE NEGATIVE (NEGATIVE); PROTEIN URINE NEGATIVE (NEGATIVE); SPECIFIC GRAVITY URINE 1.013 (1.005-1.030); UROBILINOGEN URINE 0.2 E.U./dL (0.2-1.0)
[2020-07-30] MEDS ORDERED: DEXTROSE 50% WATER 50ML SYRINGE IV PRN (12:45)
[2020-07-30] MEDS: INSULIN LISPRO 100 UNITS/ML SUBCUT SCH ×3 (13:00→21:00)
[2020-07-30] MEDS: BLOOD SUGAR DIAGNOSTIC STRIP TEST SCH ×2 (17:28→21:01)
[2020-07-30 20:00] VITALS: BP 112/69
[2020-07-30] MEDS: POLYETHYLENE GLYCOL 3350 (17GM) 1 DOSE PACK PO SCH (20:57)
[2020-07-30] MEDS: ATORVASTATIN CALCIUM 10MG TABLET PO SCH (20:57)
[2020-07-31] MEDS: IPRATROPIUM/ALBUTEROL 0.5-3(2.5)MG/3ML NEB HHN SCH ×4 (01:30→21:23)
[2020-07-31] MEDS: LEVOTHYROXINE SODIUM 100MCG TABLET PO SCH (06:22)
[2020-07-31] MEDS: DILTIAZEM HCL 60MG TABLET PO SCH ×3 (06:23→21:50)
[2020-07-31] MEDS: BLOOD SUGAR DIAGNOSTIC STRIP TEST SCH ×4 (06:23→21:52)
[2020-07-31] MEDS: OXYCODONE HCL/ACETAMINOPHEN 5/325MG TABLET PO PRN ×3 (06:36→19:43)
[2020-07-31 08:00] VITALS: BP 137/84
[2020-07-31] MEDS: LACTOBACILLUS GG CAPSULE PO SCH (08:00)
[2020-07-31] MEDS: FERROUS SULFATE 325MG TABLET PO SCH ×3 (08:00→16:24)
[2020-07-31] MEDS: DOCUSATE SODIUM 250MG CAPSULE PO SCH ×2 (08:00→16:24)
[2020-07-31] MEDS: VANCOMYCIN HCL 1000 MG/20 ML ORAL PO SCH ×2 (08:05→12:13)
[2020-07-31] MEDS: INSULIN LISPRO 100 UNITS/ML SUBCUT SCH ×4 (09:00→21:00)
[2020-07-31 20:00] VITALS: BP 126/75
[2020-07-31] MEDS: ATORVASTATIN CALCIUM 10MG TABLET PO SCH (21:50)
[2020-07-31] MEDS: POLYETHYLENE GLYCOL 3350 (17GM) 1 DOSE PACK PO SCH (21:50)
[2020-08-01] MEDS: IPRATROPIUM/ALBUTEROL 0.5-3(2.5)MG/3ML NEB HHN SCH ×4 (02:42→22:14)
[2020-08-01] MEDS: BLOOD SUGAR DIAGNOSTIC STRIP TEST SCH ×4 (06:23→21:35)
[2020-08-01] MEDS: LEVOTHYROXINE SODIUM 100MCG TABLET PO SCH (06:25)
[2020-08-01] MEDS: DILTIAZEM HCL 60MG TABLET PO SCH ×3 (06:30→21:35)
[2020-08-01] MEDS: OXYCODONE HCL/ACETAMINOPHEN 5/325MG TABLET PO PRN ×3 (06:38→18:45)
[2020-08-01 06:48] LABS: BASOPHILS % 0.7 % (0.0-2.0); EOSINOPHILS % 0.9 % (0.0-5.0); HEMATOCRIT. 28.2 % (36.0-48.0); HEMOGLOBIN. 9.5 g/dL (12.0-16.0); LYMPHOCYTES % 24.7 % (20.0-50.0); MEAN CORPUSCULAR HEMOGLOBIN 35.5 pg (28.0-32.0); MEAN CORPUSCULAR VOLUME 105.5 fL (81.0-99.0); MONOCYTES % 9.8 % (2.0-8.0); NEUTROPHILS % 63.9 % (40.0-76.0); PLATELET 589 x1000/uL (130-400); RED BLOOD CELL COUNT 2.67 mill/uL (4.2-5.4); RED CELL DISTRIBUTION WIDTH 13.9 % (11.6-14.6)
[2020-08-01 06:52] LABS: CHLORIDE 109 mEq/L (98-107)
[2020-08-01 07:03] LABS: PHOSPHORUS 3.6 mg/dL (2.5-4.9)
[2020-08-01 08:30] VITALS: BP 131/72
[2020-08-01] MEDS: FERROUS SULFATE 325MG TABLET PO SCH ×3 (08:35→17:03)
[2020-08-01] MEDS: DOCUSATE SODIUM 250MG CAPSULE PO SCH ×2 (08:35→17:03)
[2020-08-01] MEDS: INSULIN LISPRO 100 UNITS/ML SUBCUT SCH ×4 (08:36→21:00)
[2020-08-01] MEDS: ERGOCALCIFEROL 50000UNITS CAPSULE PO SCH (08:36)
[2020-08-01] MEDS: LACTOBACILLUS GG CAPSULE PO SCH (08:36)
[2020-08-01] MEDS: ACETAMINOPHEN 325MG TABLET PO PRN (09:22)
[2020-08-01 13:43] VITALS: BP 126/75
[2020-08-01 20:30] VITALS: BP 111/57
[2020-08-01] MEDS: POLYETHYLENE GLYCOL 3350 (17GM) 1 DOSE PACK PO SCH (21:00)
[2020-08-01] MEDS: ATORVASTATIN CALCIUM 10MG TABLET PO SCH (21:34)
[2020-08-02] MEDS: OXYCODONE HCL/ACETAMINOPHEN 5/325MG TABLET PO PRN ×4 (01:48→21:00)
[2020-08-02] MEDS: IPRATROPIUM/ALBUTEROL 0.5-3(2.5)MG/3ML NEB HHN SCH ×4 (02:37→21:52)
[2020-08-02] MEDS: DILTIAZEM HCL 60MG TABLET PO SCH ×3 (06:04→20:58)
[2020-08-02] MEDS: BLOOD SUGAR DIAGNOSTIC STRIP TEST SCH ×4 (06:04→21:00)
[2020-08-02] MEDS: INSULIN LISPRO 100 UNITS/ML SUBCUT SCH ×4 (06:04→21:00)
[2020-08-02] MEDS: LEVOTHYROXINE SODIUM 100MCG TABLET PO SCH (06:56)
[2020-08-02 08:00] VITALS: BP 147/79
[2020-08-02] MEDS: DOCUSATE SODIUM 250MG CAPSULE PO SCH ×2 (08:25→16:12)
[2020-08-02] MEDS: FERROUS SULFATE 325MG TABLET PO SCH ×3 (08:26→16:12)
[2020-08-02] MEDS: LACTOBACILLUS GG CAPSULE PO SCH (08:26)
[2020-08-02 20:00] VITALS: BP 147/84
[2020-08-02] MEDS: ATORVASTATIN CALCIUM 10MG TABLET PO SCH (20:58)
[2020-08-02] MEDS: POLYETHYLENE GLYCOL 3350 (17GM) 1 DOSE PACK PO SCH (21:00)
[2020-08-03] MEDS: IPRATROPIUM/ALBUTEROL 0.5-3(2.5)MG/3ML NEB HHN SCH ×2 (01:43→09:41)
[2020-08-03] MEDS: LEVOTHYROXINE SODIUM 100MCG TABLET PO SCH (06:24)
[2020-08-03] MEDS: DILTIAZEM HCL 60MG TABLET PO SCH (06:24)
[2020-08-03] MEDS: BLOOD SUGAR DIAGNOSTIC STRIP TEST SCH (06:24)
[2020-08-03] MEDS: INSULIN LISPRO 100 UNITS/ML SUBCUT SCH (07:04)
[2020-08-03 08:00] VITALS: BP 116/60
[2020-08-03] MEDS: DOCUSATE SODIUM 250MG CAPSULE PO SCH (08:03)
[2020-08-03] MEDS: LACTOBACILLUS GG CAPSULE PO SCH (08:04)
[2020-08-03] MEDS: FERROUS SULFATE 325MG TABLET PO SCH (08:04)
[2020-08-03] MEDS: OXYCODONE HCL/ACETAMINOPHEN 5/325MG TABLET PO PRN (08:04)
[2020-08-03 12:24] VITALS: BP 148/91
== END 2020-08-03 12:56 | disposition home health service (06) | DRG 551 ==
PROVIDERS: ADMIT Physical Medicine & Rehabilitation Spinal Cord Injury Medicine; ATTEND Internal Medicine Nephrology
DX: M48.061 Spinal stenosis, lumbar region without neurogenic claudication (principal); A41.9 Sepsis, unspecified organism; J98.11 Atelectasis; E46 Unspecified protein-calorie malnutrition; G82.20 Paraplegia, unspecified; K59.00 Constipation, unspecified; M47.26 Other spondylosis with radiculopathy, lumbar region; M51.9 Unspecified thoracic, thoracolumbar and lumbosacral intervertebral disc disorder; N18.9 Chronic kidney disease, unspecified; N28.1 Cyst of kidney, acquired; J44.9 Chronic obstructive pulmonary disease, unspecified; E03.9 Hypothyroidism, unspecified; E11.22 Type 2 diabetes mellitus with diabetic chronic kidney disease; E11.51 Type 2 diabetes mellitus with diabetic peripheral angiopathy without gangrene; E11.65 Type 2 diabetes mellitus with hyperglycemia; E78.5 Hyperlipidemia, unspecified; E87.6 Hypokalemia; G89.4 Chronic pain syndrome; I12.9 Hypertensive chronic kidney disease with stage 1 through stage 4 chronic kidney disease, or unspecified chronic kidney disease; R13.10 Dysphagia, unspecified; D50.9 Iron deficiency anemia, unspecified; D63.8 Anemia in other chronic diseases classified elsewhere; R26.9 Unspecified abnormalities of gait and mobility; R00.0 Tachycardia, unspecified; R19.7 Diarrhea, unspecified; R10.9 Unspecified abdominal pain; E83.39 Other disorders of phosphorus metabolism; K59.9 Functional intestinal disorder, unspecified; D75.89 Other specified diseases of blood and blood-forming organs; E83.42 Hypomagnesemia; Z87.891 Personal history of nicotine dependence; Z98.1 Arthrodesis status; Z79.899 Other long term (current) drug therapy; Z68.30 Body mass index [BMI] 30.0-30.9, adult; Z71.6 Tobacco abuse counseling
CPT/HCPCS: 36415; 71045; 72148; 73721; 74177; 80048; 80053; 80202; 81003; 82306; 82550; 82607; 82728; 82746; 82962; 83036; 83540; 83550; 83735; 84100; 84134; 84443; 85025; 85651; 90732; 92610; 93970; 94640; 97110; 97116; 97162; 97166; 97530; 97535; J0696; J2270; J3370; J3475; J3490; J7060; Q0162; Q9963; Q9967

== ENCOUNTER 2020-11-06 21:35 | Emergency (ER) | payer MEDICARE, MEDICAID ==
[~2020-11-06] VITALS: Ht 162.6 cm; Wt 76.0 kg
[2020-11-06] MEDS ORDERED: KETOROLAC 60MG/2ML VIAL IM ONE (23:30)
[2020-11-07 13:08] VITALS: BP 125/76
== END 2020-11-07 13:08 | disposition home or self-care (01) ==
LOC: ER 22:04
DX: M79.605 Pain in left leg (principal); E78.00 Pure hypercholesterolemia, unspecified; I10 Essential (primary) hypertension; E11.9 Type 2 diabetes mellitus without complications; Z79.899 Other long term (current) drug therapy; Z79.82 Long term (current) use of aspirin
CPT/HCPCS: 72131; 73620; 93005; 99285

== ENCOUNTER → 2020-11-10 | Outpatient (CLI) | payer MEDICARE, MEDICAID ==
[~2020-11-10] MED LIST changes: +BENZ-16 PO
== END | disposition home or self-care (01) ==
LOC: LAB 06:23
PROVIDERS: ATTEND Specialist
DX: Z20.828 Contact with and (suspected) exposure to other viral communicable diseases (principal)
CPT/HCPCS: 87426

== ENCOUNTER 2020-11-15 22:16 | Inpatient (IN) | payer OTHER, MEDICAID ==
[~2020-11-15] VITALS: Ht 152.4 cm; Wt 69.9 kg
[2020-11-15 22:16] VITALS: BP 113/68
[~2020-11-15 22:16] MED LIST changes: -BACL-141 PO; -HYDR-523 PO; -TRAM50TA3 PO; -theophylline PO
[2020-11-15 22:20] VITALS: BP 113/68
[2020-11-16] MEDS ORDERED: ACETAMINOPHEN 325MG TABLET PO PRN (02:00)
[2020-11-16] MEDS ORDERED: ONDANSETRON HCL 4MG/2ML INJ IV PRN (02:00)
[2020-11-16] MEDS ORDERED: ATROPINE SULFATE 1MG/10ML SYR IV PRN (02:00)
[2020-11-16] MEDS: LEVOTHYROXINE SODIUM 100MCG TABLET PO SCH (06:04)
[2020-11-16] MEDS: MORPHINE SULFATE 2 MG/ML CPJ (NOT FOR IM USE) IV PRN ×2 (06:15→09:56)
[2020-11-16 08:00] VITALS: BP 113/63
[2020-11-16] MEDS: BENZONATATE 100MG CAPSULE PO SCH ×3 (09:00→18:07)
[2020-11-16] MEDS: POTASSIUM CHLORIDE 20MEQ TABLET SR PO SCH (09:52)
[2020-11-16] MEDS: ASPIRIN 81MG TABLET PO SCH (09:52)
[2020-11-16] MEDS: METOPROLOL TARTRATE 50MG TABLET PO SCH ×2 (09:53→21:00)
[2020-11-16] MEDS: LOSARTAN POTASSIUM 50 MG TABLET PO SCH (09:53)
[2020-11-16] MEDS: CLOPIDOGREL 75MG TABLET PO SCH (09:54)
[2020-11-16] MEDS: FAMOTIDINE 20MG/2ML VIAL IV SCH (09:54)
[2020-11-16 10:01] LABS: BASOPHILS % 0.6 % (0.0-2.0); EOSINOPHILS % 2.2 % (0.0-5.0); HEMATOCRIT. 34.1 % (36.0-48.0); HEMOGLOBIN. 11.3 g/dL (12.0-16.0); LYMPHOCYTES % 18.9 % (20.0-50.0); MEAN CORPUSCULAR HEMOGLOBIN 30.3 pg (28.0-32.0); MEAN CORPUSCULAR VOLUME 91.9 fL (81.0-99.0); MEAN PLATELET VOLUME 7.7 fl (7.4-10.4); MONOCYTES % 12.5 % (2.0-8.0); NEUTROPHILS % 65.8 % (40.0-76.0); PLATELET 318 x1000/uL (130-400); RED BLOOD CELL COUNT 3.71 mill/uL (4.2-5.4); RED CELL DISTRIBUTION WIDTH 17.3 % (11.6-14.6)
[2020-11-16 10:12] LABS: CHLORIDE 108 mEq/L (98-107)
[2020-11-16] MEDS: ENOXAPARIN 30MG/0.3ML SYR SUBCUT SCH (18:07)
[2020-11-16] MEDS: HYDROCODONE/ACETAMINOPHEN 5/325MG TABLET PO PRN (18:42)
[2020-11-16 20:00] VITALS: BP 109/47
[2020-11-16] MEDS: ATORVASTATIN CALCIUM 10MG TABLET PO SCH (21:57)
[2020-11-17] MEDS: HYDROCODONE/ACETAMINOPHEN 5/325MG TABLET PO PRN ×4 (04:39→23:37)
[2020-11-17] MEDS: LEVOTHYROXINE SODIUM 100MCG TABLET PO SCH (06:20)
[2020-11-17] MEDS: ACETAMINOPHEN 325MG TABLET PO PRN (06:20)
[2020-11-17 07:17] LABS: BASOPHILS % 0.6 % (0.0-2.0); EOSINOPHILS % 2.1 % (0.0-5.0); HEMATOCRIT. 31.8 % (36.0-48.0); HEMOGLOBIN. 10.7 g/dL (12.0-16.0); MEAN CORPUSCULAR HEMOGLOBIN 31.6 pg (28.0-32.0); MEAN CORPUSCULAR VOLUME 93.3 fL (81.0-99.0); MEAN PLATELET VOLUME 7.4 fl (7.4-10.4); MONOCYTES % 12.3 % (2.0-8.0); PLATELET 344 x1000/uL (130-400); RED BLOOD CELL COUNT 3.41 mill/uL (4.2-5.4); RED CELL DISTRIBUTION WIDTH 17.3 % (11.6-14.6)
[2020-11-17 07:22] LABS: CHLORIDE 109 mEq/L (98-107)
[2020-11-17 07:30] LABS: PHOSPHORUS 3.4 mg/dL (2.5-4.9)
[2020-11-17 07:31] LABS: TOTAL IRON BINDING CAPACITY 323 ug/dL (250-450)
[2020-11-17 08:00] VITALS: BP 123/74
[2020-11-17] MEDS: ASPIRIN 81MG TABLET PO SCH (08:32)
[2020-11-17] MEDS: LACTULOSE 20G/30ML UDC PO SCH ×2 (08:32→12:04)
[2020-11-17] MEDS: LOSARTAN POTASSIUM 50 MG TABLET PO SCH (08:33)
[2020-11-17] MEDS: BENZONATATE 100MG CAPSULE PO SCH ×3 (08:33→17:04)
[2020-11-17] MEDS: CLOPIDOGREL 75MG TABLET PO SCH (08:34)
[2020-11-17] MEDS: POTASSIUM CHLORIDE 20MEQ TABLET SR PO SCH (08:34)
[2020-11-17] MEDS: METOPROLOL TARTRATE 50MG TABLET PO SCH ×2 (08:34→21:23)
[2020-11-17] MEDS: FAMOTIDINE 20MG/2ML VIAL IV SCH (08:35)
[2020-11-17] MEDS: ENOXAPARIN 30MG/0.3ML SYR SUBCUT SCH (08:35)
[2020-11-17 09:09] LABS: FOLIC ACID (FOLATE) SERUM 7.7 ng/mL (>5.38)
[2020-11-17] MEDS ORDERED: LACTULOSE 20G/30ML UDC PO SCH (13:20)
[2020-11-17] MEDS: OXYCODONE HCL 5MG TABLET PO SCH (17:04)
[2020-11-17 20:00] VITALS: BP 103/62
[2020-11-17] MEDS: ATORVASTATIN CALCIUM 10MG TABLET PO SCH (21:05)
[2020-11-17] MEDS: POLYETHYLENE GLYCOL 3350 (17GM) 1 DOSE PACK PO SCH (21:05)
[2020-11-18 06:38] LABS: T4 FREE 1.08 ng/dL (0.76-1.46)
[2020-11-18] MEDS: LEVOTHYROXINE SODIUM 112MCG TABLET PO SCH (07:45)
[2020-11-18 08:00] VITALS: BP 122/72
[2020-11-18] MEDS: POTASSIUM CHLORIDE 20MEQ TABLET SR PO SCH (08:07)
[2020-11-18] MEDS: ENOXAPARIN 30MG/0.3ML SYR SUBCUT SCH (08:07)
[2020-11-18] MEDS: ASPIRIN 81MG TABLET PO SCH (08:07)
[2020-11-18] MEDS: LOSARTAN POTASSIUM 50 MG TABLET PO SCH (08:08)
[2020-11-18] MEDS: METOPROLOL TARTRATE 50MG TABLET PO SCH ×2 (08:08→21:00)
[2020-11-18] MEDS: CLOPIDOGREL 75MG TABLET PO SCH (08:08)
[2020-11-18] MEDS: BENZONATATE 100MG CAPSULE PO SCH ×3 (08:08→17:00)
[2020-11-18] MEDS: FAMOTIDINE 20MG/2ML VIAL IV SCH (08:08)
[2020-11-18] MEDS: HYDROCODONE/ACETAMINOPHEN 5/325MG TABLET PO PRN ×3 (08:08→22:53)
[2020-11-18] MEDS: OXYCODONE HCL 5MG TABLET PO SCH ×3 (08:09→17:00)
[2020-11-18 20:00] VITALS: BP 92/56
[2020-11-18] MEDS: POLYETHYLENE GLYCOL 3350 (17GM) 1 DOSE PACK PO SCH (21:00)
[2020-11-18] MEDS: ATORVASTATIN CALCIUM 10MG TABLET PO SCH (21:14)
[2020-11-19] MEDS: LEVOTHYROXINE SODIUM 112MCG TABLET PO SCH (06:48)
[2020-11-19] MEDS: HYDROCODONE/ACETAMINOPHEN 5/325MG TABLET PO PRN ×2 (06:49→21:05)
[2020-11-19 08:00] VITALS: BP 114/66
[2020-11-19] MEDS: ENOXAPARIN 30MG/0.3ML SYR SUBCUT SCH (09:46)
[2020-11-19] MEDS: FAMOTIDINE 20MG/2ML VIAL IV SCH (09:46)
[2020-11-19] MEDS: ASPIRIN 81MG TABLET PO SCH (09:46)
[2020-11-19] MEDS: OXYCODONE HCL 5MG TABLET PO SCH ×3 (09:47→16:25)
[2020-11-19] MEDS: CLOPIDOGREL 75MG TABLET PO SCH (09:47)
[2020-11-19] MEDS: POTASSIUM CHLORIDE 20MEQ TABLET SR PO SCH (09:47)
[2020-11-19] MEDS: METOPROLOL TARTRATE 50MG TABLET PO SCH ×2 (09:47→21:00)
[2020-11-19] MEDS: LOSARTAN POTASSIUM 50 MG TABLET PO SCH (09:47)
[2020-11-19] MEDS: BENZONATATE 100MG CAPSULE PO SCH ×3 (09:47→16:24)
[2020-11-19 20:00] VITALS: BP 99/49
[2020-11-19] MEDS: ATORVASTATIN CALCIUM 10MG TABLET PO SCH (21:04)
[2020-11-19] MEDS: POLYETHYLENE GLYCOL 3350 (17GM) 1 DOSE PACK PO SCH (21:05)
[2020-11-20] MEDS: HYDROCODONE/ACETAMINOPHEN 5/325MG TABLET PO PRN (03:39)
[2020-11-20] MEDS: LEVOTHYROXINE SODIUM 112MCG TABLET PO SCH (06:24)
[2020-11-20 08:00] VITALS: BP 115/70
[2020-11-20] MEDS: LOSARTAN POTASSIUM 50 MG TABLET PO SCH (09:00)
[2020-11-20] MEDS: FAMOTIDINE 20MG/2ML VIAL IV SCH (09:18)
[2020-11-20] MEDS: ASPIRIN 81MG TABLET PO SCH (09:18)
[2020-11-20] MEDS: ENOXAPARIN 30MG/0.3ML SYR SUBCUT SCH (09:18)
[2020-11-20] MEDS: BENZONATATE 100MG CAPSULE PO SCH ×3 (09:19→17:04)
[2020-11-20] MEDS: CLOPIDOGREL 75MG TABLET PO SCH (09:19)
[2020-11-20] MEDS: METOPROLOL TARTRATE 50MG TABLET PO SCH ×2 (09:19→21:00)
[2020-11-20] MEDS: OXYCODONE HCL 5MG TABLET PO SCH ×4 (09:19→21:20)
[2020-11-20] MEDS: POTASSIUM CHLORIDE 20MEQ TABLET SR PO SCH (09:19)
[2020-11-20 19:11] LABS: 25-HYDROXY VITAMIN D3 13 ng/mL (.)
[2020-11-20 20:00] VITALS: BP 96/50
[2020-11-20] MEDS: ATORVASTATIN CALCIUM 10MG TABLET PO SCH (21:19)
[2020-11-20] MEDS: POLYETHYLENE GLYCOL 3350 (17GM) 1 DOSE PACK PO SCH (21:19)
[2020-11-21] MEDS: HYDROCODONE/ACETAMINOPHEN 5/325MG TABLET PO PRN (01:32)
[2020-11-21] MEDS: LEVOTHYROXINE SODIUM 112MCG TABLET PO SCH (06:21)
[2020-11-21 07:00] LABS: BASOPHILS % 0.9 % (0.0-2.0); EOSINOPHILS % 2.9 % (0.0-5.0); HEMOGLOBIN. 10.8 g/dL (12.0-16.0); LYMPHOCYTES % 22.4 % (20.0-50.0); MEAN CORPUSCULAR HEMOGLOBIN 31.4 pg (28.0-32.0); MEAN CORPUSCULAR VOLUME 92.8 fL (81.0-99.0); MEAN PLATELET VOLUME 6.8 fl (7.4-10.4); MONOCYTES % 9.3 % (2.0-8.0); NEUTROPHILS % 64.5 % (40.0-76.0); PLATELET 474 x1000/uL (130-400); RED BLOOD CELL COUNT 3.45 mill/uL (4.2-5.4); RED CELL DISTRIBUTION WIDTH 17.2 % (11.6-14.6)
[2020-11-21 07:19] LABS: CHLORIDE 108 mEq/L (98-107)
[2020-11-21 08:00] VITALS: BP 110/87
[2020-11-21] MEDS: METOPROLOL TARTRATE 50MG TABLET PO SCH ×2 (09:00→21:00)
[2020-11-21] MEDS: LOSARTAN POTASSIUM 50 MG TABLET PO SCH (09:17)
[2020-11-21] MEDS: ASPIRIN 81MG TABLET PO SCH (09:17)
[2020-11-21] MEDS: OXYCODONE HCL 5MG TABLET PO SCH ×3 (09:17→17:40)
[2020-11-21] MEDS: CLOPIDOGREL 75MG TABLET PO SCH (09:17)
[2020-11-21] MEDS: BENZONATATE 100MG CAPSULE PO SCH ×3 (09:18→17:36)
[2020-11-21] MEDS: POTASSIUM CHLORIDE 20MEQ TABLET SR PO SCH (09:18)
[2020-11-21] MEDS: FAMOTIDINE 20MG/2ML VIAL IV SCH (09:18)
[2020-11-21] MEDS ORDERED: ERGOCALCIFEROL 50000UNITS CAPSULE PO SCH (10:00)
[2020-11-21] MEDS: ENOXAPARIN 30MG/0.3ML SYR SUBCUT SCH (11:03)
[2020-11-21 20:00] VITALS: BP 100/52
[2020-11-21] MEDS: ATORVASTATIN CALCIUM 10MG TABLET PO SCH (21:47)
[2020-11-21] MEDS: GABAPENTIN 100MG CAPSULE PO SCH (21:47)
[2020-11-21] MEDS: POLYETHYLENE GLYCOL 3350 (17GM) 1 DOSE PACK PO SCH (21:47)
[2020-11-22] MEDS: ACETAMINOPHEN 325MG TABLET PO PRN (00:47)
[2020-11-22] MEDS: GABAPENTIN 100MG CAPSULE PO SCH ×3 (05:46→21:48)
[2020-11-22] MEDS: LEVOTHYROXINE SODIUM 112MCG TABLET PO SCH (05:46)
[2020-11-22] MEDS: OXYCODONE HCL 5MG TABLET PO PRN ×3 (05:47→15:55)
[2020-11-22 07:30] VITALS: BP 106/60
[2020-11-22] MEDS: BENZONATATE 100MG CAPSULE PO SCH ×3 (08:10→16:42)
[2020-11-22] MEDS: CLOPIDOGREL 75MG TABLET PO SCH (08:10)
[2020-11-22] MEDS: FAMOTIDINE 20MG/2ML VIAL IV SCH (08:10)
[2020-11-22] MEDS: ASPIRIN 81MG TABLET PO SCH (08:10)
[2020-11-22] MEDS: POTASSIUM CHLORIDE 20MEQ TABLET SR PO SCH (08:10)
[2020-11-22] MEDS: ENOXAPARIN 30MG/0.3ML SYR SUBCUT SCH (08:11)
[2020-11-22] MEDS: METOPROLOL TARTRATE 50MG TABLET PO SCH ×2 (09:00→21:47)
[2020-11-22] MEDS: LOSARTAN POTASSIUM 50 MG TABLET PO SCH (09:00)
[2020-11-22 10:18] VITALS: BP 105/60
[2020-11-22 20:00] VITALS: BP 157/84
[2020-11-22] MEDS: POLYETHYLENE GLYCOL 3350 (17GM) 1 DOSE PACK PO SCH (21:47)
[2020-11-22] MEDS: ATORVASTATIN CALCIUM 10MG TABLET PO SCH (21:48)
[2020-11-23 03:13] VITALS: BP 128/70
[2020-11-23] MEDS: OXYCODONE HCL 5MG TABLET PO PRN ×4 (03:16→16:39)
[2020-11-23] MEDS: GABAPENTIN 100MG CAPSULE PO SCH ×3 (05:53→22:50)
[2020-11-23] MEDS: LEVOTHYROXINE SODIUM 112MCG TABLET PO SCH (05:54)
[2020-11-23 07:07] LABS: BASOPHILS % 0.7 % (0.0-2.0); HEMOGLOBIN. 10.7 g/dL (12.0-16.0); LYMPHOCYTES % 16.1 % (20.0-50.0); MEAN CORPUSCULAR HEMOGLOBIN 31.5 pg (28.0-32.0); MEAN CORPUSCULAR VOLUME 94.3 fL (81.0-99.0); MEAN PLATELET VOLUME 7.1 fl (7.4-10.4); NEUTROPHILS % 72.2 % (40.0-76.0); PLATELET 469 x1000/uL (130-400); RED BLOOD CELL COUNT 3.39 mill/uL (4.2-5.4); RED CELL DISTRIBUTION WIDTH 17.6 % (11.6-14.6)
[2020-11-23 07:24] LABS: CHLORIDE 106 mEq/L (98-107)
[2020-11-23 08:00] VITALS: BP 116/69
[2020-11-23] MEDS: LOSARTAN POTASSIUM 50 MG TABLET PO SCH (09:00)
[2020-11-23] MEDS: ENOXAPARIN 30MG/0.3ML SYR SUBCUT SCH (09:33)
[2020-11-23] MEDS: POTASSIUM CHLORIDE 20MEQ TABLET SR PO SCH (09:33)
[2020-11-23] MEDS: BENZONATATE 100MG CAPSULE PO SCH ×3 (09:33→16:39)
[2020-11-23] MEDS: METOPROLOL TARTRATE 50MG TABLET PO SCH ×2 (09:34→21:00)
[2020-11-23] MEDS: ASPIRIN 81MG TABLET PO SCH (09:34)
[2020-11-23] MEDS: FAMOTIDINE 20MG/2ML VIAL IV SCH (09:34)
[2020-11-23] MEDS: CLOPIDOGREL 75MG TABLET PO SCH (09:34)
[2020-11-23 20:00] VITALS: BP 92/57
[2020-11-23] MEDS: ACETAMINOPHEN 325MG TABLET PO PRN (22:49)
[2020-11-23] MEDS: POLYETHYLENE GLYCOL 3350 (17GM) 1 DOSE PACK PO SCH (22:49)
[2020-11-23] MEDS: AMOXICILLIN/POTASSIUM CLAVULANATE 875/125MG TAB PO SCH (22:49)
[2020-11-23] MEDS: SULFAMETHOXAZOLE/TRIMETHOPRIM 400/80MG TAB PO SCH (22:50)
[2020-11-23] MEDS: ATORVASTATIN CALCIUM 10MG TABLET PO SCH (22:50)
[2020-11-23] MEDS: NEOMY SULF/BACITRAC ZN/POLY OINT 28GM TOP SCH (22:57)
[2020-11-24] MEDS: GABAPENTIN 100MG CAPSULE PO SCH (06:55)
[2020-11-24] MEDS: LEVOTHYROXINE SODIUM 112MCG TABLET PO SCH (06:56)
[2020-11-24] MEDS: ACETAMINOPHEN 325MG TABLET PO PRN (06:56)
[2020-11-24 08:00] VITALS: BP 117/71
[2020-11-24] MEDS: ENOXAPARIN 30MG/0.3ML SYR SUBCUT SCH (08:56)
[2020-11-24] MEDS: BENZONATATE 100MG CAPSULE PO SCH (08:57)
[2020-11-24] MEDS: FAMOTIDINE 20MG/2ML VIAL IV SCH (08:57)
[2020-11-24] MEDS: CLOPIDOGREL 75MG TABLET PO SCH (08:57)
[2020-11-24] MEDS: LOSARTAN POTASSIUM 50 MG TABLET PO SCH (08:57)
[2020-11-24] MEDS: ASPIRIN 81MG TABLET PO SCH (08:57)
[2020-11-24] MEDS: AMOXICILLIN/POTASSIUM CLAVULANATE 875/125MG TAB PO SCH (08:57)
[2020-11-24] MEDS: OXYCODONE HCL 5MG TABLET PO PRN (08:57)
[2020-11-24] MEDS: METOPROLOL TARTRATE 50MG TABLET PO SCH (08:57)
[2020-11-24] MEDS: SULFAMETHOXAZOLE/TRIMETHOPRIM 400/80MG TAB PO SCH (08:57)
[2020-11-24] MEDS: POTASSIUM CHLORIDE 20MEQ TABLET SR PO SCH (08:58)
[2020-11-24] MEDS: NEOMY SULF/BACITRAC ZN/POLY OINT 28GM TOP SCH (08:59)
[2020-11-24 11:11] VITALS: BP 116/67
== END 2020-11-24 13:12 | disposition home health service (06) | DRG 300 ==
PROVIDERS: ADMIT Physical Medicine & Rehabilitation Spinal Cord Injury Medicine; ATTEND Specialist
DX: E11.51 Type 2 diabetes mellitus with diabetic peripheral angiopathy without gangrene (principal); E46 Unspecified protein-calorie malnutrition; I74.5 Embolism and thrombosis of iliac artery; I77.9 Disorder of arteries and arterioles, unspecified; R53.81 Other malaise; R26.9 Unspecified abnormalities of gait and mobility; G89.4 Chronic pain syndrome; I10 Essential (primary) hypertension; E78.5 Hyperlipidemia, unspecified; J44.9 Chronic obstructive pulmonary disease, unspecified; E03.9 Hypothyroidism, unspecified; F17.210 Nicotine dependence, cigarettes, uncomplicated; I25.10 Atherosclerotic heart disease of native coronary artery without angina pectoris; E55.9 Vitamin D deficiency, unspecified; I49.5 Sick sinus syndrome; K21.9 Gastro-esophageal reflux disease without esophagitis; K57.90 Diverticulosis of intestine, part unspecified, without perforation or abscess without bleeding; D64.9 Anemia, unspecified; I70.222 Atherosclerosis of native arteries of extremities with rest pain, left leg; Z79.02 Long term (current) use of antithrombotics/antiplatelets; Z79.82 Long term (current) use of aspirin; Z79.4 Long term (current) use of insulin; Z80.3 Family history of malignant neoplasm of breast; Z80.8 Family history of malignant neoplasm of other organs or systems; Z82.49 Family history of ischemic heart disease and other diseases of the circulatory system; Z83.3 Family history of diabetes mellitus; Z98.1 Arthrodesis status; Z56.0 Unemployment, unspecified; Z79.899 Other long term (current) drug therapy; Z71.6 Tobacco abuse counseling; Z68.30 Body mass index [BMI] 30.0-30.9, adult
CPT/HCPCS: 36415; 80048; 80053; 82306; 82607; 82728; 82746; 83540; 83550; 83735; 84100; 84134; 84439; 84443; 84481; 85025; 93970; 97110; 97116; 97162; 97166; 97530; 97535; J1650; J2270; J3490

== ENCOUNTER 2020-11-29 09:17 | Inpatient (IN) | payer OTHER, MEDICAID ==
[~2020-11-29] VITALS: Ht 162.6 cm; Wt 60.3 kg
[~2020-11-29 09:17] MED LIST changes: -HYDR25TA PO
[2020-11-29 10:13] LABS: HEMATOCRIT. 37.6 % (36.0-48.0); MEAN CORPUSCULAR HEMOGLOBIN 31.3 pg (28.0-32.0); MEAN CORPUSCULAR VOLUME 97.9 fL (81.0-99.0); RED BLOOD CELL COUNT 3.84 mill/uL (4.2-5.4); RED CELL DISTRIBUTION WIDTH 20.2 % (11.6-14.6)
[2020-11-29 10:21] LABS: CHLORIDE 115 mEq/L (98-107)
[2020-11-29 10:24] LABS: PROTHROMBIN TIME 10.2 sec (9.6-11.0)
[2020-11-29 11:08] LABS: PLATELET ESTIMATE NORMAL
[2020-11-29] MEDS ORDERED: VANCOMYCIN 1 G PREMIX 200 ML IV ONE (11:15)
[2020-11-29] MEDS ORDERED: PIPERACILLIN/TAZ 3.375G PREMIX 50 ML IV ONE (11:15)
[2020-11-29] MEDS ORDERED: SODIUM CHLORIDE 0.9% 1000ML BAG (SEPSIS BOLUS) IV ONE (11:30)
[2020-11-29] MEDS ORDERED: MORPHINE SULFATE 4 MG/ML CPJ (NOT FOR IM USE) IV ONE (13:15)
[2020-11-29] MEDS ORDERED: HYDROCODONE/ACETAMINOPHEN 5/325MG TABLET PO PRN (14:00)
[2020-11-29] MEDS ORDERED: MAGNESIUM/ALUMINUM HYDROXIDE/SIMETHICONE 30ML UDC PO PRN (14:00)
[2020-11-29] MEDS ORDERED: LOSARTAN POTASSIUM 50 MG TABLET PO SCH (14:00)
[2020-11-29] MEDS ORDERED: CLONIDINE 0.1MG TABLET PO PRN (14:00)
[2020-11-29] MEDS ORDERED: DOCUSATE SODIUM 100MG CAPSULE PO PRN (14:00)
[2020-11-29] MEDS ORDERED: GUAIFENESIN 200MG/10ML SUGAR FREE UDC PO PRN (14:00)
[2020-11-29] MEDS ORDERED: DEXTROSE 50% WATER 50ML SYRINGE IV PRN (14:15)
[2020-11-29 14:55] LABS: CLARITY URINE CLEAR (CLEAR); COLOR URINE YELLOW (YELLOW); KETONES URINE NEGATIVE (NEGATIVE); LEUKOCYTE ESTERASE URINE TRACE (NEGATIVE); NITRITE URINE NEGATIVE (NEGATIVE); OCCULT BLOOD URINE 1+ (NEGATIVE); PH URINE 5.5 (4.5-8.0); PROTEIN URINE NEGATIVE (NEGATIVE); SPECIFIC GRAVITY URINE 1.015 (1.005-1.030); UROBILINOGEN URINE 0.2 E.U./dL (0.2-1.0)
[2020-11-29] MEDS: LEVOTHYROXINE SODIUM 100MCG TABLET PO SCH (15:00)
[2020-11-29] MEDS ORDERED: NITROGLYCERIN OINT 1GM/INCH UDPKT TD SCH (15:00)
[2020-11-29] MEDS: CLOPIDOGREL 75MG TABLET PO SCH (15:09)
[2020-11-29] MEDS ORDERED: ENOXAPARIN 60MG/0.6ML SYR SUBCUT SCH (15:30)
[2020-11-29] MEDS ORDERED: ENOXAPARIN 40MG/0.4ML SYR SUBCUT SCH ×2 (16:30→17:00)
[2020-11-29] MEDS: METOPROLOL TARTRATE 50MG TABLET PO SCH (16:59)
[2020-11-29] MEDS: INSULIN LISPRO 100 UNITS/ML SUBCUT SCH ×2 (17:11→21:33)
[2020-11-29] MEDS: BLOOD SUGAR DIAGNOSTIC STRIP TEST SCH ×2 (17:11→21:17)
[2020-11-29] MEDS: HYDROMORPHONE HCL/PF 2MG/ML CPJ IV PRN (20:15)
[2020-11-30] MEDS ORDERED: METOPROLOL TARTRATE 5MG/5ML VIAL IV PRN (00:45)
[2020-11-30] MEDS: ACETAMINOPHEN 325MG TABLET PO PRN ×2 (01:15→11:48)
[2020-11-30 05:04] LABS: HEMATOCRIT. 33.9 % (36.0-48.0); HEMOGLOBIN. 11.3 g/dL (12.0-16.0); MEAN CORPUSCULAR HEMOGLOBIN 31.4 pg (28.0-32.0); MEAN CORPUSCULAR VOLUME 94.8 fL (81.0-99.0); MEAN PLATELET VOLUME 7.8 fl (7.4-10.4); PLATELET 361 x1000/uL (130-400); RED BLOOD CELL COUNT 3.58 mill/uL (4.2-5.4)
[2020-11-30 05:08] LABS: CHLORIDE 116 mEq/L (98-107)
[2020-11-30] MEDS: INSULIN LISPRO 100 UNITS/ML SUBCUT SCH ×4 (06:39→21:00)
[2020-11-30] MEDS: BLOOD SUGAR DIAGNOSTIC STRIP TEST SCH ×4 (06:39→21:00)
[2020-11-30] MEDS: LEVOTHYROXINE SODIUM 100MCG TABLET PO SCH (07:10)
[2020-11-30] MEDS ORDERED: POTASSIUM CHLORIDE 20MEQ TABLET SR PO NR (09:00)
[2020-11-30] MEDS ORDERED: VANCOMYCIN 1 G PREMIX 200 ML IV SCH (10:15)
[2020-11-30] MEDS: METOPROLOL TARTRATE 50MG TABLET PO SCH ×2 (11:46→17:00)
[2020-11-30] MEDS: CLOPIDOGREL 75MG TABLET PO SCH (11:46)
[2020-11-30] MEDS: ENOXAPARIN 40MG/0.4ML SYR SUBCUT SCH (11:48)
[2020-11-30 12:00] VITALS: BP 128/79
[2020-11-30] MEDS ORDERED: VANCOMYCIN 750 MG PREMIX 150 ML IV SCH (12:00)
[2020-11-30 14:31] LABS: PLATELET ESTIMATE NORMAL
[2020-11-30] MEDS: SODIUM CHLORIDE 0.45% 1,000 ML IV SCH ×2 (14:34→20:15)
[2020-11-30 16:00] VITALS: BP 89/59
[2020-11-30] MEDS ORDERED: DIATR MEGLU/DIATRIZOATE SOLN 30ML PO SCH (16:30)
[2020-11-30 17:45] VITALS: BP 89/59
[2020-11-30] MEDS: CEFEPIME 1,000 MG in DEXTROSE 5% WATER 50 ML IV SCH (18:44)
[2020-11-30 20:00] VITALS: BP 141/82
[2020-11-30] MEDS: HYDROMORPHONE HCL/PF 2MG/ML CPJ IV PRN (20:25)
[2020-11-30] MEDS: ONDANSETRON HCL 4MG/2ML INJ IV PRN (20:25)
[2020-11-30 23:59] VITALS: BP 139/82
[2020-12-01] MEDS: ONDANSETRON HCL 4MG/2ML INJ IV PRN ×2 (02:17→12:14)
[2020-12-01 04:00] VITALS: BP 112/71
[2020-12-01] MEDS: SODIUM CHLORIDE 0.45% 1,000 ML IV SCH ×2 (05:16→16:59)
[2020-12-01] MEDS: CEFEPIME 1,000 MG in DEXTROSE 5% WATER 50 ML IV SCH ×2 (05:16→18:22)
[2020-12-01] MEDS: LEVOTHYROXINE SODIUM 100MCG TABLET PO SCH (05:17)
[2020-12-01] MEDS: INSULIN LISPRO 100 UNITS/ML SUBCUT SCH ×4 (05:41→21:00)
[2020-12-01] MEDS: BLOOD SUGAR DIAGNOSTIC STRIP TEST SCH ×4 (05:41→21:14)
[2020-12-01 08:00] VITALS: BP 106/61
[2020-12-01] MEDS: CLOPIDOGREL 75MG TABLET PO SCH (09:15)
[2020-12-01] MEDS: METOPROLOL TARTRATE 50MG TABLET PO SCH ×2 (09:15→17:51)
[2020-12-01] MEDS: ENOXAPARIN 40MG/0.4ML SYR SUBCUT SCH (09:16)
[2020-12-01] MEDS ORDERED: SODIUM BICARBONATE 4% (2.4MEQ) 5ML VIAL IV ONE (10:42)
[2020-12-01] MEDS ORDERED: LIDOCAINE HCL 1% 20ML VIAL (Pyxis) INJ ONE (10:43)
[2020-12-01 11:06] LABS: HEMATOCRIT. 37.4 % (36.0-48.0); HEMOGLOBIN. 12.1 g/dL (12.0-16.0); MEAN CORPUSCULAR VOLUME 95.5 fL (81.0-99.0); MEAN PLATELET VOLUME 7.9 fl (7.4-10.4); PLATELET 336 x1000/uL (130-400); RED BLOOD CELL COUNT 3.92 mill/uL (4.2-5.4); RED CELL DISTRIBUTION WIDTH 19.5 % (11.6-14.6)
[2020-12-01 11:30] LABS: PHOSPHORUS 2.8 mg/dL (2.5-4.9)
[2020-12-01] MEDS: HYDROMORPHONE HCL/PF 2MG/ML CPJ IV PRN ×2 (12:25→21:40)
[2020-12-01] MEDS: PANTOPRAZOLE SODIUM 40 MG/VIAL IV SCH ×2 (16:41→23:50)
[2020-12-01] MEDS: VANCOMYCIN 1 G PREMIX 200 ML IV SCH ×2 (17:54→17:56)
[2020-12-01] MEDS: VANCOMYCIN HCL 1000 MG/20 ML ORAL PO SCH ×3 (18:00→23:58)
[2020-12-01 20:00] VITALS: BP 140/76
[2020-12-01 22:04] LABS: PLATELET ESTIMATE NORMAL
[2020-12-02] VITALS: BP 138/70
[2020-12-02] MEDS: SODIUM CHLORIDE 0.45% 1,000 ML IV SCH ×3 (02:15→22:15)
[2020-12-02 04:00] VITALS: BP 144/87
[2020-12-02] MEDS: VANCOMYCIN HCL 1000 MG/20 ML ORAL PO SCH ×3 (05:30→18:00)
[2020-12-02] MEDS: CEFEPIME 1,000 MG in DEXTROSE 5% WATER 50 ML IV SCH ×2 (05:44→22:41)
[2020-12-02] MEDS: BLOOD SUGAR DIAGNOSTIC STRIP TEST SCH ×4 (05:54→21:00)
[2020-12-02] MEDS: INSULIN LISPRO 100 UNITS/ML SUBCUT SCH ×4 (06:50→21:00)
[2020-12-02] MEDS: LEVOTHYROXINE SODIUM 100MCG TABLET PO SCH (06:50)
[2020-12-02 07:05] LABS: HEMATOCRIT. 34.8 % (36.0-48.0); HEMOGLOBIN. 11.5 g/dL (12.0-16.0); MEAN CORPUSCULAR HEMOGLOBIN 30.8 pg (28.0-32.0); MEAN CORPUSCULAR VOLUME 93.6 fL (81.0-99.0); PLATELET 363 x1000/uL (130-400); RED BLOOD CELL COUNT 3.72 mill/uL (4.2-5.4); RED CELL DISTRIBUTION WIDTH 19.3 % (11.6-14.6)
[2020-12-02 08:00] VITALS: BP 151/101
[2020-12-02] MEDS ORDERED: POTASSIUM CHLORIDE 20MEQ TABLET SR PO NR (08:30)
[2020-12-02] MEDS: HYDROMORPHONE HCL/PF 2MG/ML CPJ IV PRN ×2 (09:35→18:45)
[2020-12-02] MEDS: ENOXAPARIN 40MG/0.4ML SYR SUBCUT SCH (09:35)
[2020-12-02] MEDS: PANTOPRAZOLE SODIUM 40 MG/VIAL IV SCH ×2 (09:35→22:41)
[2020-12-02] MEDS: METOPROLOL TARTRATE 50MG TABLET PO SCH ×2 (09:36→17:31)
[2020-12-02] MEDS ORDERED: KCL 20MEQ/100ML PREMIX 100 ML IV SCH (11:00)
[2020-12-02] MEDS ORDERED: METOCLOPRAMIDE HCL 10MG/2ML VIAL IV PRN (11:45)
[2020-12-02 12:00] VITALS: BP 134/76
[2020-12-02 12:41] LABS: NUCLEATED RED BLOOD CELLS 2 /100 WBC; PLATELET ESTIMATE NORMAL
[2020-12-02 16:00] VITALS: BP 142/70
[2020-12-02] MEDS: VANCOMYCIN 1 G PREMIX 200 ML IV SCH (17:07)
[2020-12-02] MEDS: ONDANSETRON HCL 4MG/2ML INJ IV PRN (17:14)
[2020-12-02] MEDS: METRONIDAZOLE 500 MG PREMIX 100 ML IV SCH (17:24)
[2020-12-02 20:00] VITALS: BP 132/75
[2020-12-03] VITALS: BP 148/81
[2020-12-03] MEDS: ONDANSETRON HCL 4MG/2ML INJ IV PRN (02:01)
[2020-12-03] MEDS: METRONIDAZOLE 500 MG PREMIX 100 ML IV SCH ×4 (02:02→23:48)
[2020-12-03] MEDS: HYDROMORPHONE HCL/PF 2MG/ML CPJ IV PRN ×2 (02:17→09:26)
[2020-12-03] MEDS: VANCOMYCIN HCL 1000 MG/20 ML ORAL PO SCH ×5 (02:29→23:48)
[2020-12-03] MEDS: LEVOTHYROXINE SODIUM 100MCG TABLET PO SCH (02:30)
[2020-12-03 04:00] VITALS: BP 119/78
[2020-12-03] MEDS: CEFEPIME 1,000 MG in DEXTROSE 5% WATER 50 ML IV SCH ×2 (05:58→18:12)
[2020-12-03] MEDS: VANCOMYCIN 1 G PREMIX 200 ML IV SCH (05:58)
[2020-12-03] MEDS: BLOOD SUGAR DIAGNOSTIC STRIP TEST SCH ×4 (06:45→21:34)
[2020-12-03] MEDS: INSULIN LISPRO 100 UNITS/ML SUBCUT SCH ×4 (06:50→21:00)
[2020-12-03 08:00] VITALS: BP 148/85
[2020-12-03] MEDS: PANTOPRAZOLE SODIUM 40 MG/VIAL IV SCH ×2 (08:33→21:48)
[2020-12-03] MEDS: SODIUM CHLORIDE 0.45% 1,000 ML IV SCH ×2 (08:33→18:45)
[2020-12-03] MEDS: METOPROLOL TARTRATE 50MG TABLET PO SCH ×2 (08:34→17:20)
[2020-12-03] MEDS ORDERED: MIDAZOLAM HCL 5 MG/5 ML VIAL ONE (11:12)
[2020-12-03] MEDS ORDERED: FENTANYL CITRATE/PF 50MCG/ML 2ML VIAL ONE (11:12)
[2020-12-03] MEDS ORDERED: MIDAZOLAM HCL 5 MG/5 ML VIAL IV PRN (11:12)
[2020-12-03 11:55] LABS: HEMOGLOBIN. 11.8 g/dL (12.0-16.0); MEAN CORPUSCULAR HEMOGLOBIN 30.9 pg (28.0-32.0); MEAN CORPUSCULAR VOLUME 94.5 fL (81.0-99.0); PLATELET 343 x1000/uL (130-400); RED BLOOD CELL COUNT 3.81 mill/uL (4.2-5.4); RED CELL DISTRIBUTION WIDTH 19.4 % (11.6-14.6)
[2020-12-03 12:00] VITALS: BP 139/93
[2020-12-03 12:05] LABS: PARTIAL THROMBOPLASTIN TIME 22.5 sec (23.4-31.0); PROTHROMBIN TIME 10.6 sec (9.6-11.0)
[2020-12-03 12:17] LABS: CHLORIDE 111 mEq/L (98-107)
[2020-12-03 12:25] LABS: PHOSPHORUS 2.3 mg/dL (2.5-4.9)
[2020-12-03 12:39] LABS: NUCLEATED RED BLOOD CELLS 2 /100 WBC; PLATELET ESTIMATE NORMAL
[2020-12-03 16:00] VITALS: BP 150/98
[2020-12-03] MEDS: MORPHINE SULFATE 2 MG/ML CPJ (NOT FOR IM USE) IV PRN ×2 (17:20→21:48)
[2020-12-03] MEDS: VANCOMYCIN 750 MG PREMIX 150 ML IV SCH (18:47)
[2020-12-03 20:00] VITALS: BP 155/88
[2020-12-04] VITALS: BP 142/84
[2020-12-04] MEDS: SODIUM CHLORIDE 0.45% 1,000 ML IV SCH (03:44)
[2020-12-04 04:00] VITALS: BP 155/89
[2020-12-04] MEDS: INSULIN LISPRO 100 UNITS/ML SUBCUT SCH ×4 (06:12→20:58)
[2020-12-04] MEDS: BLOOD SUGAR DIAGNOSTIC STRIP TEST SCH ×4 (06:12→20:58)
[2020-12-04] MEDS: CEFEPIME 1,000 MG in DEXTROSE 5% WATER 50 ML IV SCH ×2 (06:38→20:43)
[2020-12-04] MEDS: MORPHINE SULFATE 2 MG/ML CPJ (NOT FOR IM USE) IV PRN ×4 (06:38→20:42)
[2020-12-04] MEDS: VANCOMYCIN 750 MG PREMIX 150 ML IV SCH ×2 (06:38→17:05)
[2020-12-04] MEDS: LEVOTHYROXINE SODIUM 100MCG TABLET PO SCH (06:40)
[2020-12-04 06:50] LABS: HEMOGLOBIN. 11.5 g/dL (12.0-16.0); MEAN CORPUSCULAR HEMOGLOBIN 31.3 pg (28.0-32.0); MEAN PLATELET VOLUME 9.1 fl (7.4-10.4); PLATELET 388 x1000/uL (130-400); RED BLOOD CELL COUNT 3.69 mill/uL (4.2-5.4); RED CELL DISTRIBUTION WIDTH 19.2 % (11.6-14.6)
[2020-12-04 07:03] LABS: CHLORIDE 112 mEq/L (98-107)
[2020-12-04 08:00] VITALS: BP 126/77
[2020-12-04] MEDS: METRONIDAZOLE 500 MG PREMIX 100 ML IV SCH ×2 (08:38→17:55)
[2020-12-04] MEDS: PANTOPRAZOLE SODIUM 40 MG/VIAL IV SCH ×2 (08:38→20:48)
[2020-12-04] MEDS: METOPROLOL TARTRATE 50MG TABLET PO SCH ×2 (08:38→16:14)
[2020-12-04] MEDS: VANCOMYCIN HCL 1000 MG/20 ML ORAL PO SCH ×4 (08:39→23:26)
[2020-12-04 11:59] VITALS: BP 144/70
[2020-12-04 14:06] LABS: NUCLEATED RED BLOOD CELLS 2 /100 WBC; PLATELET ESTIMATE NORMAL
[2020-12-04 16:00] VITALS: BP 135/79
[2020-12-04 20:00] VITALS: BP 119/67
[2020-12-05] VITALS: BP 117/64
[2020-12-05 06:27] LABS: CHLORIDE 114 mEq/L (98-107)
[2020-12-05] MEDS: INSULIN LISPRO 100 UNITS/ML SUBCUT SCH ×4 (06:35→20:28)
[2020-12-05] MEDS: BLOOD SUGAR DIAGNOSTIC STRIP TEST SCH ×4 (06:35→20:28)
[2020-12-05] MEDS: VANCOMYCIN 750 MG PREMIX 150 ML IV SCH (06:39)
[2020-12-05] MEDS: LEVOTHYROXINE SODIUM 100MCG TABLET PO SCH (06:39)
[2020-12-05] MEDS: CEFEPIME 1,000 MG in DEXTROSE 5% WATER 50 ML IV SCH (06:39)
[2020-12-05] MEDS: VANCOMYCIN HCL 1000 MG/20 ML ORAL PO SCH ×3 (06:39→17:34)
[2020-12-05 06:43] LABS: VANCOMYCIN TROUGH 26.7 ug/mL (5.0-10.0)
[2020-12-05 07:04] LABS: HEMATOCRIT. 34.6 % (36.0-48.0); HEMOGLOBIN. 11.5 g/dL (12.0-16.0); MEAN CORPUSCULAR HEMOGLOBIN 31.3 pg (28.0-32.0); MEAN CORPUSCULAR VOLUME 94.5 fL (81.0-99.0); MEAN PLATELET VOLUME 8.1 fl (7.4-10.4); PLATELET 323 x1000/uL (130-400); RED BLOOD CELL COUNT 3.66 mill/uL (4.2-5.4); RED CELL DISTRIBUTION WIDTH 19.1 % (11.6-14.6)
[2020-12-05 08:00] VITALS: BP 133/73
[2020-12-05] MEDS: METRONIDAZOLE 500 MG PREMIX 100 ML IV SCH ×3 (09:12→17:34)
[2020-12-05] MEDS: PANTOPRAZOLE SODIUM 40 MG/VIAL IV SCH ×2 (09:12→20:20)
[2020-12-05] MEDS: METOPROLOL TARTRATE 50MG TABLET PO SCH ×2 (09:12→17:00)
[2020-12-05] MEDS: POTASSIUM CHLORIDE 20MEQ TABLET SR PO SCH ×2 (09:48→17:34)
[2020-12-05] MEDS: MORPHINE SULFATE 2 MG/ML CPJ (NOT FOR IM USE) IV PRN ×2 (09:48→20:20)
[2020-12-05] MEDS ORDERED: POTASSIUM CHLORIDE 20MEQ TABLET SR PO SCH (10:00)
[2020-12-05 12:00] VITALS: BP 113/72
[2020-12-05 15:09] LABS: NUCLEATED RED BLOOD CELLS 1 /100 WBC
[2020-12-05 15:10] LABS: PLATELET ESTIMATE NORMAL
[2020-12-05 16:00] VITALS: BP 107/64
[2020-12-05] MEDS ORDERED: [UNRECOGNIZED DRUG - REMARK] XX SCH (16:00)
[2020-12-05 20:00] VITALS: BP 115/70
[2020-12-06] VITALS: BP 99/65
[2020-12-06] MEDS: VANCOMYCIN HCL 1000 MG/20 ML ORAL PO SCH ×5 (00:13→23:00)
[2020-12-06] MEDS: METRONIDAZOLE 500 MG PREMIX 100 ML IV SCH ×3 (00:13→16:56)
[2020-12-06] MEDS: MORPHINE SULFATE 2 MG/ML CPJ (NOT FOR IM USE) IV PRN ×3 (03:24→17:20)
[2020-12-06 04:00] VITALS: BP 128/68
[2020-12-06] MEDS ORDERED: METOPROLOL TARTRATE 5MG/5ML VIAL IV PRN (05:00)
[2020-12-06] MEDS: LEVOTHYROXINE SODIUM 100MCG TABLET PO SCH (06:32)
[2020-12-06] MEDS: BLOOD SUGAR DIAGNOSTIC STRIP TEST SCH ×4 (06:32→21:39)
[2020-12-06 07:24] LABS: BASOPHILS % 0.4 % (0.0-2.0); EOSINOPHILS % 0.4 % (0.0-5.0); HEMATOCRIT. 38.3 % (36.0-48.0); HEMOGLOBIN. 12.6 g/dL (12.0-16.0); MEAN CORPUSCULAR VOLUME 94.4 fL (81.0-99.0); MEAN PLATELET VOLUME 8.1 fl (7.4-10.4); NEUTROPHILS % 84.2 % (40.0-76.0); PLATELET 348 x1000/uL (130-400); RED BLOOD CELL COUNT 4.05 mill/uL (4.2-5.4); RED CELL DISTRIBUTION WIDTH 19.3 % (11.6-14.6)
[2020-12-06 07:35] LABS: CHLORIDE 115 mEq/L (98-107)
[2020-12-06 07:41] LABS: PHOSPHORUS 1.8 mg/dL (2.5-4.9)
[2020-12-06] MEDS: INSULIN LISPRO 100 UNITS/ML SUBCUT SCH ×4 (07:50→21:00)
[2020-12-06 08:00] VITALS: BP 127/61
[2020-12-06] MEDS: PANTOPRAZOLE SODIUM 40 MG/VIAL IV SCH ×2 (10:28→21:39)
[2020-12-06] MEDS: METOPROLOL TARTRATE 50MG TABLET PO SCH ×2 (10:29→16:56)
[2020-12-06 12:00] VITALS: BP 164/68
[2020-12-06] MEDS ORDERED: POTASSIUM PHOS,M-BASIC-D-BASIC 20 MMOL in DEXT 5% WATER 243.3333 ML IV SCH (12:00)
[2020-12-06] MEDS: SODIUM CHLORIDE 0.45% 1,000 ML IV SCH (13:34)
[2020-12-06 16:00] VITALS: BP 124/66
[2020-12-06 20:00] VITALS: BP 107/52
[2020-12-07] VITALS: BP 125/53
[2020-12-07] MEDS: METRONIDAZOLE 500 MG PREMIX 100 ML IV SCH ×3 (01:12→17:04)
[2020-12-07] MEDS: MORPHINE SULFATE 2 MG/ML CPJ (NOT FOR IM USE) IV PRN ×4 (01:35→22:10)
[2020-12-07 04:00] VITALS: BP 126/57
[2020-12-07] MEDS: VANCOMYCIN HCL 1000 MG/20 ML ORAL PO SCH ×3 (06:10→17:59)
[2020-12-07] MEDS: LEVOTHYROXINE SODIUM 100MCG TABLET PO SCH (06:10)
[2020-12-07] MEDS: BLOOD SUGAR DIAGNOSTIC STRIP TEST SCH ×4 (06:22→21:57)
[2020-12-07] MEDS: INSULIN LISPRO 100 UNITS/ML SUBCUT SCH ×4 (07:50→21:00)
[2020-12-07 08:00] VITALS: BP 111/66
[2020-12-07 08:45] LABS: HEMATOCRIT. 35.4 % (36.0-48.0); HEMOGLOBIN. 11.5 g/dL (12.0-16.0); MEAN CORPUSCULAR VOLUME 95.1 fL (81.0-99.0); MEAN PLATELET VOLUME 8.1 fl (7.4-10.4); PLATELET 353 x1000/uL (130-400); RED BLOOD CELL COUNT 3.72 mill/uL (4.2-5.4); RED CELL DISTRIBUTION WIDTH 19.4 % (11.6-14.6)
[2020-12-07 09:04] LABS: CHLORIDE 112 mEq/L (98-107)
[2020-12-07] MEDS: METOPROLOL TARTRATE 50MG TABLET PO SCH ×2 (09:08→17:04)
[2020-12-07] MEDS: PANTOPRAZOLE SODIUM 40 MG/VIAL IV SCH ×2 (09:08→21:57)
[2020-12-07 09:09] LABS: PHOSPHORUS 2.1 mg/dL (2.5-4.9)
[2020-12-07 12:00] VITALS: BP 150/70
[2020-12-07] MEDS ORDERED: POTASSIUM PHOS,M-BASIC-D-BASIC 20 MMOL in DEXT 5% WATER 243.3333 ML IV SCH (12:00)
[2020-12-07] MEDS: SODIUM CHLORIDE 0.45% 1,000 ML IV SCH (12:10)
[2020-12-07] MEDS: ACETAMINOPHEN 325MG TABLET PO PRN (13:08)
[2020-12-07] MEDS ORDERED: IOHEXOL-300 100 ML BOTTLE ONE (14:03)
[2020-12-07 16:00] VITALS: BP 141/75
[2020-12-07 18:22] LABS: PLATELET ESTIMATE NORMAL
[2020-12-07 20:00] VITALS: BP 121/68
[2020-12-08] MEDS: METRONIDAZOLE 500 MG PREMIX 100 ML IV SCH ×3 (00:12→18:22)
[2020-12-08] MEDS: VANCOMYCIN HCL 1000 MG/20 ML ORAL PO SCH ×3 (00:13→18:23)
[2020-12-08 05:23] VITALS: BP 118/69
[2020-12-08] MEDS: BLOOD SUGAR DIAGNOSTIC STRIP TEST SCH ×3 (06:30→17:20)
[2020-12-08 07:10] LABS: CHLORIDE 111 mEq/L (98-107)
[2020-12-08 07:15] LABS: BASOPHILS % 0.4 % (0.0-2.0); EOSINOPHILS % 1.6 % (0.0-5.0); HEMATOCRIT. 35.1 % (36.0-48.0); HEMOGLOBIN. 11.6 g/dL (12.0-16.0); MEAN CORPUSCULAR HEMOGLOBIN 30.9 pg (28.0-32.0); MEAN PLATELET VOLUME 7.9 fl (7.4-10.4); MONOCYTES % 6.6 % (2.0-8.0); NEUTROPHILS % 80.4 % (40.0-76.0); PLATELET 367 x1000/uL (130-400); RED BLOOD CELL COUNT 3.74 mill/uL (4.2-5.4); RED CELL DISTRIBUTION WIDTH 19.4 % (11.6-14.6)
[2020-12-08] MEDS: LEVOTHYROXINE SODIUM 100MCG TABLET PO SCH (07:20)
[2020-12-08] MEDS ORDERED: HEPARIN 5000 UNITS/ML VIAL ONE ×2 (07:37→09:57)
[2020-12-08] MEDS ORDERED: THROMBIN (BOVINE) 5000 UNITS/VIAL TOP ONE (07:38)
[2020-12-08] MEDS ORDERED: LIDOCAINE HCL 1% 20ML VIAL (Pyxis) INJ ONE (07:38)
[2020-12-08] MEDS ORDERED: BACITRACIN 50,000 UNITS/VIAL ONE (07:38)
[2020-12-08] MEDS ORDERED: BACITRACIN 15GM TUBE TOP ONE (07:38)
[2020-12-08] MEDS ORDERED: BUPIVACAINE HCL/PF 0.5% (5MG/ML) 10ML ONE (07:38)
[2020-12-08] MEDS: INSULIN LISPRO 100 UNITS/ML SUBCUT SCH ×4 (07:50→20:42)
[2020-12-08 08:00] VITALS: BP 128/78
[2020-12-08] MEDS ORDERED: HEPARIN SODIUM 1,000 UNIT/1ML VIAL IV ONE ×2 (08:24→09:58)
[2020-12-08] MEDS: METOPROLOL TARTRATE 50MG TABLET PO SCH ×2 (09:00→18:22)
[2020-12-08] MEDS: PANTOPRAZOLE SODIUM 40 MG/VIAL IV SCH ×2 (09:00→20:39)
[2020-12-08 09:10] LABS: SACCHAROMYCES CEREVISIAE IGG <20.0 Units (0.0-24.9); SACCHAROMYCES CEREVISIAE IGM <20.0 Units (0.0-24.9)
[2020-12-08] MEDS ORDERED: VANCOMYCIN 1 G PREMIX 200 ML IV SCH (09:30)
[2020-12-08] MEDS ORDERED: FENTANYL CITRATE/PF 50MCG/ML 2ML VIAL ONE (09:31)
[2020-12-08] MEDS ORDERED: MIDAZOLAM HCL 2 MG/2 ML VIAL ONE (09:32)
[2020-12-08] MEDS ORDERED: GLYCOPYRROLATE 0.2 MG/ML 2ML VIAL ONE (09:32)
[2020-12-08] MEDS ORDERED: SUCCINYLCHOLINE CHLORIDE 200MG/10ML IV ONE (09:32)
[2020-12-08] MEDS ORDERED: METOCLOPRAMIDE HCL 10MG/2ML VIAL ONE (09:32)
[2020-12-08] MEDS ORDERED: ONDANSETRON HCL 4MG/2ML INJ ONE (09:32)
[2020-12-08] MEDS ORDERED: PROPOFOL 200MG/20ML VIAL IV ONE (09:32)
[2020-12-08] MEDS ORDERED: ALBUMIN HUMAN 12.5G/250ML (5%) IV ONE (10:15)
[2020-12-08] MEDS ORDERED: MEPERIDINE HCL/PF 25MG/ML CPJ IV PRN (11:00)
[2020-12-08] MEDS ORDERED: SODIUM CHLORIDE 0.9% 1,000 ML IV ONE (11:00)
[2020-12-08] MEDS ORDERED: ONDANSETRON HCL 4MG/2ML INJ IV PRN (11:00)
[2020-12-08] MEDS ORDERED: MORPHINE SULFATE 2 MG/ML CPJ (NOT FOR IM USE) IV PRN (11:00)
[2020-12-08] MEDS: HYDROMORPHONE HCL/PF 2MG/ML CPJ IV PRN ×4 (11:22→12:08)
[2020-12-08] MEDS ORDERED: POTASSIUM PHOS,M-BASIC-D-BASIC 20 MMOL in DEXT 5% WATER 243.3333 ML IV SCH (13:00)
[2020-12-08 13:07] LABS: ATYPICAL pANCA <1:20 titer (Neg:<1:20)
[2020-12-08] MEDS: MORPHINE SULFATE 4 MG/ML CPJ (NOT FOR IM USE) IV PRN ×2 (15:37→21:12)
[2020-12-08] MEDS: MAGNESIUM OXIDE 400MG TABLET PO SCH (15:37)
[2020-12-08 16:00] VITALS: BP 130/72
[2020-12-08] MEDS: CEFEPIME 1,000 MG in DEXTROSE 5% WATER 50 ML IV SCH (18:22)
[2020-12-08 20:00] VITALS: BP 117/56
[2020-12-08] MEDS: VANCOMYCIN 750 MG PREMIX 150 ML IV SCH (20:52)
[2020-12-09] VITALS: BP 131/65
[2020-12-09] MEDS: METRONIDAZOLE 500 MG PREMIX 100 ML IV SCH ×3 (00:45→17:48)
[2020-12-09 04:00] VITALS: BP 119/76
[2020-12-09] MEDS: CEFEPIME 1,000 MG in DEXTROSE 5% WATER 50 ML IV SCH ×2 (05:38→17:48)
[2020-12-09] MEDS: VANCOMYCIN HCL 1000 MG/20 ML ORAL PO SCH ×4 (05:39→17:52)
[2020-12-09] MEDS: LEVOTHYROXINE SODIUM 100MCG TABLET PO SCH (06:39)
[2020-12-09] MEDS: MORPHINE SULFATE 4 MG/ML CPJ (NOT FOR IM USE) IV PRN (06:50)
[2020-12-09] MEDS: BLOOD SUGAR DIAGNOSTIC STRIP TEST SCH ×4 (06:57→21:02)
[2020-12-09 07:13] LABS: BASOPHILS % 0.5 % (0.0-2.0); EOSINOPHILS % 1.5 % (0.0-5.0); HEMATOCRIT. 31.9 % (36.0-48.0); HEMOGLOBIN. 10.4 g/dL (12.0-16.0); LYMPHOCYTES % 7.1 % (20.0-50.0); MEAN CORPUSCULAR HEMOGLOBIN 30.8 pg (28.0-32.0); MEAN CORPUSCULAR VOLUME 94.7 fL (81.0-99.0); MEAN PLATELET VOLUME 8.2 fl (7.4-10.4); MONOCYTES % 6.3 % (2.0-8.0); NEUTROPHILS % 84.6 % (40.0-76.0); PLATELET 293 x1000/uL (130-400); RED BLOOD CELL COUNT 3.37 mill/uL (4.2-5.4); RED CELL DISTRIBUTION WIDTH 19.1 % (11.6-14.6)
[2020-12-09 07:36] LABS: CHLORIDE 109 mEq/L (98-107)
[2020-12-09] MEDS: INSULIN LISPRO 100 UNITS/ML SUBCUT SCH ×4 (07:41→21:00)
[2020-12-09 07:44] LABS: PHOSPHORUS 2.5 mg/dL (2.5-4.9)
[2020-12-09 08:00] VITALS: BP 143/65
[2020-12-09] MEDS: MAGNESIUM OXIDE 400MG TABLET PO SCH (09:39)
[2020-12-09] MEDS: METOPROLOL TARTRATE 50MG TABLET PO SCH (09:40)
[2020-12-09] MEDS: PANTOPRAZOLE SODIUM 40 MG/VIAL IV SCH ×2 (11:09→21:10)
[2020-12-09] MEDS: VANCOMYCIN 750 MG PREMIX 150 ML IV SCH (11:09)
[2020-12-09 12:00] VITALS: BP 105/74
[2020-12-09] MEDS ORDERED: MORPHINE SULFATE 2 MG/ML CPJ (NOT FOR IM USE) IV PRN (12:30)
[2020-12-09] MEDS: HYDROCODONE/ACETAMINOPHEN 5/325MG TABLET PO PRN ×2 (12:50→20:14)
[2020-12-09] MEDS: VANCOMYCIN 1 G PREMIX 200 ML IV SCH (13:00)
[2020-12-09 16:00] VITALS: BP 102/55
[2020-12-09 20:00] VITALS: BP 110/59
[2020-12-09] MEDS: METOPROLOL TARTRATE 25MG TABLET PO SCH (21:12)
[2020-12-10] VITALS: BP 112/62
[2020-12-10] MEDS: METRONIDAZOLE 500 MG PREMIX 100 ML IV SCH ×3 (00:31→17:00)
[2020-12-10] MEDS: VANCOMYCIN HCL 1000 MG/20 ML ORAL PO SCH ×4 (00:31→18:56)
[2020-12-10 04:00] VITALS: BP 129/79
[2020-12-10] MEDS: CEFEPIME 1,000 MG in DEXTROSE 5% WATER 50 ML IV SCH ×2 (05:36→17:17)
[2020-12-10] MEDS: LEVOTHYROXINE SODIUM 100MCG TABLET PO SCH (06:26)
[2020-12-10] MEDS: BLOOD SUGAR DIAGNOSTIC STRIP TEST SCH ×4 (06:29→20:50)
[2020-12-10] MEDS: VANCOMYCIN 1 G PREMIX 200 ML IV SCH (06:29)
[2020-12-10] MEDS: INSULIN LISPRO 100 UNITS/ML SUBCUT SCH ×4 (07:30→20:50)
[2020-12-10] MEDS: HYDROCODONE/ACETAMINOPHEN 5/325MG TABLET PO PRN ×3 (07:34→20:50)
[2020-12-10 08:00] VITALS: BP 149/73
[2020-12-10] MEDS: MAGNESIUM OXIDE 400MG TABLET PO SCH (09:06)
[2020-12-10] MEDS: METOPROLOL TARTRATE 25MG TABLET PO SCH ×2 (09:06→20:50)
[2020-12-10] MEDS: PANTOPRAZOLE SODIUM 40 MG/VIAL IV SCH ×2 (09:07→20:50)
[2020-12-10 09:15] LABS: BASOPHILS % 0.7 % (0.0-2.0); EOSINOPHILS % 1.3 % (0.0-5.0); HEMATOCRIT. 32.7 % (36.0-48.0); HEMOGLOBIN. 10.8 g/dL (12.0-16.0); LYMPHOCYTES % 9.1 % (20.0-50.0); MEAN CORPUSCULAR HEMOGLOBIN 31.4 pg (28.0-32.0); MEAN CORPUSCULAR VOLUME 95.6 fL (81.0-99.0); MEAN PLATELET VOLUME 7.8 fl (7.4-10.4); MONOCYTES % 5.4 % (2.0-8.0); NEUTROPHILS % 83.5 % (40.0-76.0); PLATELET 381 x1000/uL (130-400); RED BLOOD CELL COUNT 3.42 mill/uL (4.2-5.4); RED CELL DISTRIBUTION WIDTH 19.4 % (11.6-14.6)
[2020-12-10 09:22] LABS: CHLORIDE 110 mEq/L (98-107)
[2020-12-10] MEDS ORDERED: POTASSIUM CHLORIDE 20MEQ TABLET SR PO NR (10:15)
[2020-12-10 12:00] VITALS: BP 132/70
[2020-12-10 16:00] VITALS: BP 118/69
[2020-12-10 21:40] VITALS: BP 129/66
== END 2020-12-10 22:25 | DRG 856 ==
LOC: ER 09:17 → MICUSO 13:16 → 5WST 11-30 08:28 → 7EST 11-30 19:46 → 5WST 12-01 11:55 → 6EST 12-06 02:55
PROVIDERS: ADMIT Hospitalist; ATTEND Hospitalist
PROC: 02HV33Z Insertion of Infusion Device into Superior Vena Cava, Percutaneous Approach (ICD-10-PCS; 2020-12-01)
PROC: B548ZZA Ultrasonography of Superior Vena Cava, Guidance (ICD-10-PCS; 2020-12-01)
PROC: 0DB68ZX Excision of Stomach, Via Natural or Artificial Opening Endoscopic, Diagnostic (ICD-10-PCS; 2020-12-03)
PROC: 04CL0ZZ Extirpation of Matter from Left Femoral Artery, Open Approach (ICD-10-PCS; principal; 2020-12-08)
PROC: 04WY0KZ Revision of Nonautologous Tissue Substitute in Lower Artery, Open Approach (ICD-10-PCS; 2020-12-08)
DX: T81.49XA Infection following a procedure, other surgical site, initial encounter (principal); A41.9 Sepsis, unspecified organism; K29.71 Gastritis, unspecified, with bleeding; N17.0 Acute kidney failure with tubular necrosis; T82.868A Thrombosis due to vascular prosthetic devices, implants and grafts, initial encounter; E87.2 Acidosis; N39.0 Urinary tract infection, site not specified; I74.5 Embolism and thrombosis of iliac artery; K55.9 Vascular disorder of intestine, unspecified; E11.51 Type 2 diabetes mellitus with diabetic peripheral angiopathy without gangrene; J44.9 Chronic obstructive pulmonary disease, unspecified; I99.8 Other disorder of circulatory system; I10 Essential (primary) hypertension; G89.4 Chronic pain syndrome; F17.200 Nicotine dependence, unspecified, uncomplicated; E78.5 Hyperlipidemia, unspecified; E03.9 Hypothyroidism, unspecified; D64.9 Anemia, unspecified; B96.20 Unspecified Escherichia coli [E. coli] as the cause of diseases classified elsewhere; E78.00 Pure hypercholesterolemia, unspecified; E86.0 Dehydration; E87.6 Hypokalemia; I25.10 Atherosclerotic heart disease of native coronary artery without angina pectoris; K25.9 Gastric ulcer, unspecified as acute or chronic, without hemorrhage or perforation; K44.9 Diaphragmatic hernia without obstruction or gangrene; M48.061 Spinal stenosis, lumbar region without neurogenic claudication; Y83.1 Surgical operation with implant of artificial internal device as the cause of abnormal reaction of the patient, or of later complication, without mention of misadventure at the time of the procedure; Z20.822 Contact with and (suspected) exposure to COVID-19; D17.5 Benign lipomatous neoplasm of intra-abdominal organs; R26.9 Unspecified abnormalities of gait and mobility; E05.90 Thyrotoxicosis, unspecified without thyrotoxic crisis or storm; I49.5 Sick sinus syndrome; K21.9 Gastro-esophageal reflux disease without esophagitis; K57.90 Diverticulosis of intestine, part unspecified, without perforation or abscess without bleeding; B96.1 Klebsiella pneumoniae [K. pneumoniae] as the cause of diseases classified elsewhere; Z79.899 Other long term (current) drug therapy; Z79.82 Long term (current) use of aspirin; Z98.1 Arthrodesis status; Y92.89 Other specified places as the place of occurrence of the external cause; Z79.4 Long term (current) use of insulin; K52.9 Noninfective gastroenteritis and colitis, unspecified; I73.9 Peripheral vascular disease, unspecified
CPT/HCPCS: 36415; 71045; 74176; 74177; 76770; 76937; 80048; 80053; 80202; 81003; 82150; 82270; 82550; 82962; 83605; 83735; 83970; 84100; 84145; 84484; 85025; 86256; 86671; 86850; 86900; 87070; 87077; 87186; 87426; 88304; 88305; 88313; 92523; 93005; 93922; 93923; 97110; 97116; 97162; 97164; 97166; 97168; 97530; 97535; 99291; C1725; C1757; C1768; C1769; C1884; C9113; J0330; J0692; J1170; J1644; J1650; J1815; J2250; J2270; J2405; J2543; J2704; J2765; J3010; J3370; J3480; J3490; J7030; J7060; P9041; Q9967

== ENCOUNTER 2020-12-10 22:17 | Inpatient (IN) | payer OTHER, MEDICAID ==
[~2020-12-10] VITALS: Ht 162.6 cm; Wt 60.3 kg
[2020-12-10 22:30] VITALS: BP 137/75
[2020-12-11] MEDS ORDERED: CLONIDINE 0.1MG TABLET PO PRN (00:30)
[2020-12-11] MEDS ORDERED: DEXTROSE 50% WATER 50ML SYRINGE IV PRN (00:30)
[2020-12-11] MEDS ORDERED: HYDROCODONE/ACETAMINOPHEN 5/325MG TABLET PO PRN (00:30)
[2020-12-11] MEDS ORDERED: ACETAMINOPHEN 325MG TABLET PO PRN (00:30)
[2020-12-11] MEDS ORDERED: METOCLOPRAMIDE HCL 10MG/2ML VIAL IV PRN (00:30)
[2020-12-11] MEDS ORDERED: DOCUSATE SODIUM 100MG CAPSULE PO PRN (00:30)
[2020-12-11] MEDS ORDERED: METRONIDAZOLE 500 MG PREMIX 100 ML IV SCH ×2 (00:30→08:30)
[2020-12-11] MEDS ORDERED: GUAIFENESIN 200MG/10ML SUGAR FREE UDC PO PRN (00:30)
[2020-12-11] MEDS ORDERED: MORPHINE SULFATE 2 MG/ML CPJ (NOT FOR IM USE) IV PRN (00:30)
[2020-12-11] MEDS ORDERED: MAGNESIUM/ALUMINUM HYDROXIDE/SIMETHICONE 30ML UDC PO PRN (00:30)
[2020-12-11] MEDS ORDERED: ONDANSETRON HCL 4MG/2ML INJ IV PRN (00:30)
[2020-12-11] MEDS ORDERED: VANCOMYCIN 1 G PREMIX 200 ML IV SCH ×2 (01:00)
[2020-12-11] MEDS ORDERED: PANTOPRAZOLE SODIUM 40 MG/VIAL IV SCH (01:00)
[2020-12-11] MEDS: METRONIDAZOLE 500 MG PREMIX 100 ML IV SCH ×3 (03:37→16:30)
[2020-12-11] MEDS: VANCOMYCIN HCL 1000 MG/20 ML ORAL PO SCH ×4 (03:45→17:31)
[2020-12-11] MEDS: VANCOMYCIN 1 G PREMIX 200 ML IV SCH ×2 (04:41→20:51)
[2020-12-11] MEDS ORDERED: CEFEPIME 1,000 MG in DEXTROSE 5% WATER 50 ML IV SCH (06:00)
[2020-12-11] MEDS: CEFEPIME 1,000 MG in DEXTROSE 5% WATER 50 ML IV SCH ×2 (06:03→17:31)
[2020-12-11] MEDS: LEVOTHYROXINE SODIUM 100MCG TABLET PO SCH (06:03)
[2020-12-11] MEDS: BLOOD SUGAR DIAGNOSTIC STRIP TEST SCH ×4 (06:03→20:59)
[2020-12-11] MEDS: INSULIN LISPRO 100 UNITS/ML SUBCUT SCH ×4 (06:04→21:00)
[2020-12-11] MEDS ORDERED: INFLUENZA VACCINE 05/PF 0.5 ML VIAL IM ONE (07:30)
[2020-12-11 08:00] VITALS: BP 127/67
[2020-12-11] MEDS ORDERED: *PATIENT'S OWN MEDICATION STORAGE XX SCH (08:00)
[2020-12-11] MEDS: METOPROLOL TARTRATE 25MG TABLET PO SCH ×2 (08:34→20:51)
[2020-12-11] MEDS: MAGNESIUM OXIDE 400MG TABLET PO SCH (08:34)
[2020-12-11] MEDS: PANTOPRAZOLE SODIUM 40 MG/VIAL IV SCH ×2 (08:34→20:51)
[2020-12-11] MEDS ORDERED: ENOXAPARIN 40MG/0.4ML SYR SUBCUT SCH (09:00)
[2020-12-11 10:27] LABS: BASOPHILS % 0.4 % (0.0-2.0); EOSINOPHILS % 0.7 % (0.0-5.0); HEMATOCRIT. 29.7 % (36.0-48.0); HEMOGLOBIN. 9.9 g/dL (12.0-16.0); LYMPHOCYTES % 9.4 % (20.0-50.0); MEAN CORPUSCULAR HEMOGLOBIN 31.7 pg (28.0-32.0); MEAN CORPUSCULAR VOLUME 94.9 fL (81.0-99.0); MONOCYTES % 5.7 % (2.0-8.0); NEUTROPHILS % 83.8 % (40.0-76.0); PLATELET 363 x1000/uL (130-400); RED BLOOD CELL COUNT 3.13 mill/uL (4.2-5.4); RED CELL DISTRIBUTION WIDTH 19.9 % (11.6-14.6)
[2020-12-11 10:30] LABS: CHLORIDE 108 mEq/L (98-107)
[2020-12-11 10:36] LABS: PHOSPHORUS 1.3 mg/dL (2.5-4.9)
[2020-12-11] MEDS ORDERED: POTASSIUM CHLORIDE 20MEQ TABLET SR PO NR (10:45)
[2020-12-11] MEDS: HYDROCODONE/ACETAMINOPHEN 5/325MG TABLET PO PRN ×2 (11:44→18:59)
[2020-12-11 12:21] VITALS: BP 105/57
[2020-12-11] MEDS ORDERED: ONDANSETRON HCL 4MG TABLET PO PRN (13:00)
[2020-12-11 16:04] VITALS: BP 106/55
[2020-12-11 20:00] VITALS: BP 104/53
[2020-12-12] MEDS: VANCOMYCIN HCL 1000 MG/20 ML ORAL PO SCH ×5 (00:33→23:33)
[2020-12-12] MEDS: METRONIDAZOLE 500 MG PREMIX 100 ML IV SCH ×3 (01:01→18:10)
[2020-12-12] MEDS: CEFEPIME 1,000 MG in DEXTROSE 5% WATER 50 ML IV SCH ×2 (05:28→17:12)
[2020-12-12] MEDS: BLOOD SUGAR DIAGNOSTIC STRIP TEST SCH ×4 (05:33→21:28)
[2020-12-12] MEDS: INSULIN LISPRO 100 UNITS/ML SUBCUT SCH ×4 (05:34→21:00)
[2020-12-12] MEDS: HYDROCODONE/ACETAMINOPHEN 5/325MG TABLET PO PRN ×4 (06:24→23:34)
[2020-12-12] MEDS: LEVOTHYROXINE SODIUM 100MCG TABLET PO SCH (06:24)
[2020-12-12 08:10] LABS: CHLORIDE 110 mEq/L (98-107)
[2020-12-12 08:17] LABS: PHOSPHORUS 1.6 mg/dL (2.5-4.9)
[2020-12-12 08:18] LABS: TOTAL IRON BINDING CAPACITY 176 ug/dL (250-450)
[2020-12-12 08:19] VITALS: BP 114/69
[2020-12-12] MEDS: PANTOPRAZOLE SODIUM 40 MG/VIAL IV SCH ×2 (08:45→21:28)
[2020-12-12] MEDS: METOPROLOL TARTRATE 25MG TABLET PO SCH ×2 (08:46→21:28)
[2020-12-12] MEDS: MAGNESIUM OXIDE 400MG TABLET PO SCH ×3 (08:46→21:27)
[2020-12-12] MEDS: POTASSIUM-SODIUM PHOSPHATE POWDER PACKET PO SCH ×2 (11:15→16:19)
[2020-12-12 12:13] LABS: BASOPHILS % 0.8 % (0.0-2.0); HEMATOCRIT. 32.7 % (36.0-48.0); HEMOGLOBIN. 10.8 g/dL (12.0-16.0); LYMPHOCYTES % 11.4 % (20.0-50.0); MEAN CORPUSCULAR HEMOGLOBIN 31.7 pg (28.0-32.0); MEAN CORPUSCULAR VOLUME 95.7 fL (81.0-99.0); MEAN PLATELET VOLUME 7.7 fl (7.4-10.4); MONOCYTES % 9.1 % (2.0-8.0); NEUTROPHILS % 77.7 % (40.0-76.0); PLATELET 389 x1000/uL (130-400); RED BLOOD CELL COUNT 3.42 mill/uL (4.2-5.4); RED CELL DISTRIBUTION WIDTH 20.7 % (11.6-14.6)
[2020-12-12] MEDS: LACTULOSE 20G/30ML UDC PO SCH ×2 (12:19→21:29)
[2020-12-12 14:08] LABS: FOLIC ACID (FOLATE) SERUM 4.1 ng/mL (>5.38)
[2020-12-12] MEDS: VANCOMYCIN 1 G PREMIX 200 ML IV SCH (14:50)
[2020-12-12] MEDS: GABAPENTIN 300MG CAPSULE PO SCH ×2 (14:50→21:27)
[2020-12-12 20:00] VITALS: BP 110/53
[2020-12-12 23:31] LABS: CLARITY URINE CLEAR (CLEAR); COLOR URINE YELLOW (YELLOW); KETONES URINE NEGATIVE (NEGATIVE); LEUKOCYTE ESTERASE URINE NEGATIVE (NEGATIVE); NITRITE URINE NEGATIVE (NEGATIVE); OCCULT BLOOD URINE NEGATIVE (NEGATIVE); PROTEIN URINE NEGATIVE (NEGATIVE); SPECIFIC GRAVITY URINE 1.013 (1.005-1.030); UROBILINOGEN URINE 0.2 E.U./dL (0.2-1.0)
[2020-12-13] MEDS: METRONIDAZOLE 500 MG PREMIX 100 ML IV SCH ×2 (01:16→14:03)
[2020-12-13] MEDS: CEFEPIME 1,000 MG in DEXTROSE 5% WATER 50 ML IV SCH ×3 (05:25→18:00)
[2020-12-13] MEDS: GABAPENTIN 300MG CAPSULE PO SCH ×3 (05:26→21:42)
[2020-12-13] MEDS: LEVOTHYROXINE SODIUM 100MCG TABLET PO SCH (05:26)
[2020-12-13] MEDS: BLOOD SUGAR DIAGNOSTIC STRIP TEST SCH ×4 (05:26→21:00)
[2020-12-13] MEDS: VANCOMYCIN HCL 1000 MG/20 ML ORAL PO SCH ×2 (05:26→12:06)
[2020-12-13] MEDS: LACTULOSE 20G/30ML UDC PO SCH ×3 (05:27→21:44)
[2020-12-13] MEDS: INSULIN LISPRO 100 UNITS/ML SUBCUT SCH ×4 (05:27→21:00)
[2020-12-13 05:37] LABS: BASOPHILS % 0.8 % (0.0-2.0); EOSINOPHILS % 1.1 % (0.0-5.0); HEMATOCRIT. 27.5 % (36.0-48.0); HEMOGLOBIN. 9.3 g/dL (12.0-16.0); LYMPHOCYTES % 15.2 % (20.0-50.0); MEAN CORPUSCULAR HEMOGLOBIN 32.2 pg (28.0-32.0); MEAN CORPUSCULAR VOLUME 95.8 fL (81.0-99.0); MEAN PLATELET VOLUME 7.9 fl (7.4-10.4); NEUTROPHILS % 73.9 % (40.0-76.0); PLATELET 374 x1000/uL (130-400); RED BLOOD CELL COUNT 2.87 mill/uL (4.2-5.4); RED CELL DISTRIBUTION WIDTH 20.8 % (11.6-14.6)
[2020-12-13 06:01] LABS: CHLORIDE 111 mEq/L (98-107)
[2020-12-13 06:07] LABS: PHOSPHORUS 2.1 mg/dL (2.5-4.9)
[2020-12-13 08:00] VITALS: BP 150/72
[2020-12-13] MEDS: VANCOMYCIN 1 G PREMIX 200 ML IV SCH (09:21)
[2020-12-13] MEDS: MAGNESIUM OXIDE 400MG TABLET PO SCH (09:21)
[2020-12-13] MEDS: METOPROLOL TARTRATE 25MG TABLET PO SCH ×2 (09:22→21:43)
[2020-12-13] MEDS: HYDROCODONE/ACETAMINOPHEN 5/325MG TABLET PO PRN ×2 (09:24→14:05)
[2020-12-13] MEDS: PANTOPRAZOLE SODIUM 40 MG/VIAL IV SCH ×2 (09:29→21:42)
[2020-12-13] MEDS ORDERED: SODIUM PHOS,M-BASIC-D-BASIC 15 MM in DEXT 5% WATER 245 ML IV SCH (12:00)
[2020-12-13 14:00] VITALS: BP 104/53
[2020-12-13] MEDS ORDERED: VANCOMYCIN 1 G PREMIX 200 ML IV SCH (14:45)
[2020-12-13] MEDS: POTASSIUM-SODIUM PHOSPHATE POWDER PACKET PO SCH (16:41)
[2020-12-13 20:00] VITALS: BP 110/59
[2020-12-13] MEDS: METRONIDAZOLE 500MG TABLET PO SCH (21:42)
[2020-12-13] MEDS ORDERED: METRONIDAZOLE 500 MG PREMIX 100 ML IV SCH (22:00)
[2020-12-14] MEDS: HYDROCODONE/ACETAMINOPHEN 5/325MG TABLET PO PRN ×3 (00:06→20:30)
[2020-12-14] MEDS ORDERED: VANCOMYCIN 1 G PREMIX 200 ML IV SCH (03:00)
[2020-12-14] MEDS: VANCOMYCIN 1 G PREMIX 200 ML IV SCH ×2 (04:42→21:18)
[2020-12-14] MEDS: GABAPENTIN 300MG CAPSULE PO SCH ×3 (06:23→21:19)
[2020-12-14] MEDS: CEFEPIME 1,000 MG in DEXTROSE 5% WATER 50 ML IV SCH ×2 (06:23→17:37)
[2020-12-14] MEDS: LACTULOSE 20G/30ML UDC PO SCH ×2 (06:24→14:00)
[2020-12-14] MEDS: LEVOTHYROXINE SODIUM 100MCG TABLET PO SCH (06:24)
[2020-12-14] MEDS: BLOOD SUGAR DIAGNOSTIC STRIP TEST SCH ×4 (06:35→20:40)
[2020-12-14 07:21] LABS: EOSINOPHILS % 1.9 % (0.0-5.0); HEMATOCRIT. 27.9 % (36.0-48.0); HEMOGLOBIN. 9.4 g/dL (12.0-16.0); LYMPHOCYTES % 16.6 % (20.0-50.0); MEAN CORPUSCULAR HEMOGLOBIN 32.6 pg (28.0-32.0); MEAN CORPUSCULAR VOLUME 96.9 fL (81.0-99.0); MEAN PLATELET VOLUME 7.3 fl (7.4-10.4); MONOCYTES % 11.2 % (2.0-8.0); NEUTROPHILS % 69.3 % (40.0-76.0); PLATELET 366 x1000/uL (130-400); RED BLOOD CELL COUNT 2.88 mill/uL (4.2-5.4); RED CELL DISTRIBUTION WIDTH 20.8 % (11.6-14.6)
[2020-12-14 07:32] LABS: CHLORIDE 108 mEq/L (98-107)
[2020-12-14 07:47] LABS: PHOSPHORUS 2.8 mg/dL (2.5-4.9)
[2020-12-14 07:54] VITALS: BP 108/56
[2020-12-14] MEDS: PANTOPRAZOLE SODIUM 40 MG/VIAL IV SCH ×2 (08:38→20:30)
[2020-12-14] MEDS: POTASSIUM-SODIUM PHOSPHATE POWDER PACKET PO SCH ×2 (08:38→17:36)
[2020-12-14] MEDS: METRONIDAZOLE 500MG TABLET PO SCH ×2 (08:38→20:29)
[2020-12-14] MEDS: INSULIN LISPRO 100 UNITS/ML SUBCUT SCH ×4 (08:53→20:40)
[2020-12-14] MEDS: METOPROLOL TARTRATE 25MG TABLET PO SCH ×2 (09:00→20:29)
[2020-12-14 20:00] VITALS: BP 129/68
[2020-12-15] MEDS: CEFEPIME 1,000 MG in DEXTROSE 5% WATER 50 ML IV SCH ×2 (06:31→17:40)
[2020-12-15] MEDS: BLOOD SUGAR DIAGNOSTIC STRIP TEST SCH ×4 (06:32→21:41)
[2020-12-15] MEDS: LEVOTHYROXINE SODIUM 100MCG TABLET PO SCH (06:32)
[2020-12-15] MEDS: HYDROCODONE/ACETAMINOPHEN 5/325MG TABLET PO PRN ×3 (06:32→20:21)
[2020-12-15] MEDS: GABAPENTIN 300MG CAPSULE PO SCH ×3 (06:32→21:33)
[2020-12-15] MEDS: METOPROLOL TARTRATE 25MG TABLET PO SCH ×2 (08:22→21:32)
[2020-12-15 08:27] VITALS: BP 99/57
[2020-12-15] MEDS: INSULIN LISPRO 100 UNITS/ML SUBCUT SCH ×4 (08:44→21:00)
[2020-12-15] MEDS: METRONIDAZOLE 500MG TABLET PO SCH ×2 (09:02→21:33)
[2020-12-15] MEDS: PANTOPRAZOLE SODIUM 40 MG/VIAL IV SCH ×2 (09:02→21:33)
[2020-12-15] MEDS: VANCOMYCIN 1 G PREMIX 200 ML IV SCH (14:05)
[2020-12-15 20:00] VITALS: BP 120/63
[2020-12-16] MEDS: HYDROCODONE/ACETAMINOPHEN 5/325MG TABLET PO PRN ×4 (04:45→21:38)
[2020-12-16] MEDS: LEVOTHYROXINE SODIUM 100MCG TABLET PO SCH (06:12)
[2020-12-16] MEDS: GABAPENTIN 300MG CAPSULE PO SCH ×3 (06:12→21:39)
[2020-12-16] MEDS: CEFEPIME 1,000 MG in DEXTROSE 5% WATER 50 ML IV SCH ×2 (06:12→17:03)
[2020-12-16] MEDS: INSULIN LISPRO 100 UNITS/ML SUBCUT SCH ×4 (06:15→21:00)
[2020-12-16] MEDS: BLOOD SUGAR DIAGNOSTIC STRIP TEST SCH ×4 (06:15→20:49)
[2020-12-16 08:00] VITALS: BP 118/63
[2020-12-16] MEDS: PANTOPRAZOLE SODIUM 40 MG/VIAL IV SCH ×2 (08:27→21:35)
[2020-12-16] MEDS: VANCOMYCIN 1 G PREMIX 200 ML IV SCH (08:27)
[2020-12-16] MEDS: METRONIDAZOLE 500MG TABLET PO SCH ×2 (08:28→21:39)
[2020-12-16] MEDS: METOPROLOL TARTRATE 25MG TABLET PO SCH ×2 (08:28→21:00)
[2020-12-16 17:06] LABS: 25-HYDROXY VITAMIN D3 11 ng/mL (.)
[2020-12-16 20:00] VITALS: BP 104/57
[2020-12-17] MEDS: VANCOMYCIN 1 G PREMIX 200 ML IV SCH (03:50)
[2020-12-17] MEDS: CEFEPIME 1,000 MG in DEXTROSE 5% WATER 50 ML IV SCH ×2 (05:48→18:28)
[2020-12-17] MEDS: BLOOD SUGAR DIAGNOSTIC STRIP TEST SCH ×4 (05:49→21:51)
[2020-12-17] MEDS: GABAPENTIN 300MG CAPSULE PO SCH ×3 (05:58→21:49)
[2020-12-17] MEDS: LEVOTHYROXINE SODIUM 100MCG TABLET PO SCH (06:05)
[2020-12-17 08:00] VITALS: BP 114/56
[2020-12-17] MEDS: PANTOPRAZOLE SODIUM 40 MG/VIAL IV SCH ×2 (08:13→21:49)
[2020-12-17] MEDS: RIFAMPIN 300MG CAPSULE PO SCH (08:13)
[2020-12-17] MEDS: HYDROCODONE/ACETAMINOPHEN 5/325MG TABLET PO PRN ×3 (08:14→18:29)
[2020-12-17] MEDS: METRONIDAZOLE 500MG TABLET PO SCH ×2 (08:14→21:49)
[2020-12-17] MEDS: METOPROLOL TARTRATE 25MG TABLET PO SCH ×2 (08:15→21:49)
[2020-12-17] MEDS: INSULIN LISPRO 100 UNITS/ML SUBCUT SCH ×4 (08:16→21:00)
[2020-12-17 08:45] LABS: BASOPHILS % 1.7 % (0.0-2.0); HEMATOCRIT. 28.6 % (36.0-48.0); HEMOGLOBIN. 9.8 g/dL (12.0-16.0); LYMPHOCYTES % 21.2 % (20.0-50.0); MEAN CORPUSCULAR HEMOGLOBIN 33.2 pg (28.0-32.0); MEAN CORPUSCULAR VOLUME 97.4 fL (81.0-99.0); MEAN PLATELET VOLUME 7.7 fl (7.4-10.4); MONOCYTES % 14.1 % (2.0-8.0); PLATELET 376 x1000/uL (130-400); RED BLOOD CELL COUNT 2.94 mill/uL (4.2-5.4); RED CELL DISTRIBUTION WIDTH 21.5 % (11.6-14.6)
[2020-12-17 09:03] LABS: CHLORIDE 107 mEq/L (98-107)
[2020-12-17 09:09] LABS: PHOSPHORUS 2.8 mg/dL (2.5-4.9)
[2020-12-17] MEDS ORDERED: ERGOCALCIFEROL 50000UNITS CAPSULE PO SCH (15:00)
[2020-12-17 20:00] VITALS: BP 121/74
[2020-12-18] MEDS ORDERED: VANCOMYCIN 750 MG PREMIX 150 ML IV SCH (03:00)
[2020-12-18] MEDS: CEFEPIME 1,000 MG in DEXTROSE 5% WATER 50 ML IV SCH (05:10)
[2020-12-18] MEDS: GABAPENTIN 300MG CAPSULE PO SCH ×2 (05:10→13:47)
[2020-12-18] MEDS: INSULIN LISPRO 100 UNITS/ML SUBCUT SCH ×2 (05:16→11:48)
[2020-12-18] MEDS: BLOOD SUGAR DIAGNOSTIC STRIP TEST SCH ×2 (05:16→11:46)
[2020-12-18] MEDS: LEVOTHYROXINE SODIUM 100MCG TABLET PO SCH (06:00)
[2020-12-18 08:00] VITALS: BP 123/67
[2020-12-18] MEDS: PANTOPRAZOLE SODIUM 40 MG/VIAL IV SCH (08:34)
[2020-12-18] MEDS: RIFAMPIN 300MG CAPSULE PO SCH (08:35)
[2020-12-18] MEDS: METOPROLOL TARTRATE 25MG TABLET PO SCH (08:35)
[2020-12-18] MEDS: METRONIDAZOLE 500MG TABLET PO SCH (08:35)
[2020-12-18] MEDS: HYDROCODONE/ACETAMINOPHEN 5/325MG TABLET PO PRN (08:44)
[2020-12-18 13:52] VITALS: BP 125/65
== END 2020-12-18 16:05 | disposition home health service (06) | DRG 947 ==
LOC: 4WST 22:17
PROVIDERS: ADMIT Physical Medicine & Rehabilitation Spinal Cord Injury Medicine; ATTEND Hospitalist
DX: R53.81 Other malaise (principal); A41.9 Sepsis, unspecified organism; K29.71 Gastritis, unspecified, with bleeding; N17.9 Acute kidney failure, unspecified; E87.2 Acidosis; T82.868A Thrombosis due to vascular prosthetic devices, implants and grafts, initial encounter; K52.9 Noninfective gastroenteritis and colitis, unspecified; R26.9 Unspecified abnormalities of gait and mobility; G89.4 Chronic pain syndrome; E11.51 Type 2 diabetes mellitus with diabetic peripheral angiopathy without gangrene; I70.209 Unspecified atherosclerosis of native arteries of extremities, unspecified extremity; I10 Essential (primary) hypertension; E78.5 Hyperlipidemia, unspecified; J44.9 Chronic obstructive pulmonary disease, unspecified; E03.9 Hypothyroidism, unspecified; K29.60 Other gastritis without bleeding; K44.9 Diaphragmatic hernia without obstruction or gangrene; D64.9 Anemia, unspecified; E55.9 Vitamin D deficiency, unspecified; F17.200 Nicotine dependence, unspecified, uncomplicated; Y83.2 Surgical operation with anastomosis, bypass or graft as the cause of abnormal reaction of the patient, or of later complication, without mention of misadventure at the time of the procedure; I49.5 Sick sinus syndrome; K21.9 Gastro-esophageal reflux disease without esophagitis; K57.90 Diverticulosis of intestine, part unspecified, without perforation or abscess without bleeding; Z82.49 Family history of ischemic heart disease and other diseases of the circulatory system; Z98.1 Arthrodesis status
CPT/HCPCS: 36415; 80048; 80053; 80202; 81003; 82140; 82306; 82607; 82728; 82746; 82962; 83540; 83550; 83735; 84100; 84134; 84443; 85025; 90686; 92523; 93970; 97110; 97112; 97116; 97162; 97166; 97530; 97535; C9113; J0692; J2405; J3370; J3490; J7040; J7060; Q0162